=== PATIENT | male | born 1980 | race Caucasian/White ===

== ENCOUNTER 2017-11-16 13:17 | Inpatient (IN) | payer OTHER ==
[2017-11-16 14:45] VITALS: BMI 25.9
--- NOTE | 2017-11-16 17:09 | HP ---
COWS - Scale Resting Pulse: 0= [place] 80 or Below Sweatin= Chills/Flushing Restless Observation: 1= Difficult to Sit Still Pupil Size: 0= Normal to Room Light Bone or Joint Aches: 1= Mild Discomfort Runny Nose/ Eye Tearin= Runny Nose/Eyes GI Upset > 30mins: 2= Nausea/Diarrhea Tremor Observation: 1= Tremor [place], Not Seen Yawning Observation: 1= 1-2x During Session Anxiety or Irritability: 1=Feels Anxious/Irritable Goose Flesh Skin: 3=Piloerection COWS Score: 13 Admission ROS S - HPI Chief Complaint: I've lost everything, I need help, I've tried. Allergies/Adverse Reactions: Allergies Allergy/AdvReac Type Severity Reaction Status Date / Time No Known Allergies Allergy Verified 11/16/17 17:01 History of Present Illness: 37 yo gentleman here for detox from opiates. No overdoses, no seizures, has had black outs. States he drinks but it is not a problem and does not need detox from that. First time ever in detox. States he has bronchitis and was given a Rx for augmentin yesterday that he did not get to fill yet. Exam Limitations: Clinical Condition - Ebola screening Have you traveled outside of the country in the last 21 days: No ([place]) Have you had contact with anyone from an Ebola affected area: No Have you been sick,other than usual withdrawal symptoms: No Do you have a fever: No - Review of Systems Constitutional: Loss of Appetite, Malaise, Night Sweats, Changes in sleep, Weakness EENT: reports: Blurred Vision, Nose Congestion Respiratory: reports: Cough, Productive cough (greenish phlegm) Cardiac: reports: No Symptoms Reported GI: reports: Diarrhea, Nausea, Poor Appetite, Abdominal cramping : reports: Dysuria Musculoskeletal: reports: Back Pain, Joint Pain, Muscle Pain Integumentary: reports: Dryness, Rash (elbow flecture aspect - mild erythema) Neuro: reports: Headache, Tremors Endocrine: reports: No Symptoms Reported Hematology: reports: No Symptoms Reported Psychiatric: reports: Judgement Intact, Mood/Affect Appropiate, Anxious Other Systems: Reviewed and Negative Patient History - Patient Medical History Hx Anemia: No Hx Asthma: No Hx Chronic Obstructive Pulmonary Disease (COPD): No Hx Cancer: No Hx Cardiac Disorders: No Hx Congestive Heart Failure: No Hx Hypertension: No Hx Pacemaker: No Hx Seizures: No Hx Dementia: No Hx Diabetes: No Hx Gastrointestinal Disorders: No Hx Liver Disease: No Hx Genitourinary Disorders: No Hx Sexually Transmitted Disorders: No Hx Renal Disease (ESRD): No Hx Thyroid Disease: No Hx Human Immunodeficiency Virus (HIV): No Hx Hepatitis C: No Hx Depression: Yes (anxiety) Hx Suicide Attempt: No Hx Bipolar Disorder: No Hx Schizophrenia: No - Patient Surgical History Past Surgical History: No - PPD History Previous Implant?: Yes Documented Results: Negative w/o proof Implanted On Prior [facility] Admission?: No PPD to be Administered?: Yes - Reproductive History Patient is a Female of Child Bearing Age (11 -55 yrs old): No - Smoking Cessation Smoking history: Current every day smoker Have you smoked in the past 12 months: Yes Aproximately how many cigarettes per day: 5 Initiated information on smoking cessation: Yes 'Breaking Loose' booklet given: 11/16/17 (give on floor) - Substance & Tx. History Hx Alcohol Use: Yes Substance Use Type: Cocaine, Heroin, Opiates Hx Substance Use Treatment: No - Substances Abused oxycodone Route: Oral Frequency: Daily Amount used: five 30mg pills Age of first use: 31 Date of Last Use: 11/16/17 heroin Route: Inhalation Frequency: 1-3 times last 30 days Amount used: 1 bundle Age of first use: 25 Date of Last Use: 11/06/17 cocaine Route: Inhalation Frequency: 1-2 times per week Amount used: $40 Age of first use: 14 Date of Last Use: 11/02/17 alcohol Route: Oral Frequency: Daily Amount used: three 12 oz cans beer Age of first use: 18 Date of Last Use: 11/16/17 Family Disease History - Family Disease History Family Disease History: [place]: Mother (living), Other: Father (, etoh), Mother Admission Physical Exam S - Vital Signs Vital Signs: Vital Signs - 24 hr 11/16/17 14:44 Temperature 97.4 F L Pulse Rate 72 Respiratory 18 Rate Blood Pressure 149/97 - Physical General Appearance: Yes: Nourished, Appropriately Dressed, Moderate Distress, Tremorous, Anxious HEENTM: Yes: Hearing grossly Normal, Normocephalic, Normal Voice, Pharynx Normal Respiratory: Yes: No Respiratory Distress, Rhonchi Neck: Yes: No masses,lesions,Nodules, Supple Breast: Yes: Breast Exam Deferred Cardiology: Yes: Regular Rhythm, Regular Rate Abdominal: Yes: Soft Genitourinary: Yes: Within Normal Limits Back: Yes: Normal Inspection Musculoskeletal: Yes: full range of Motion, Gait Steady Extremities: Yes: Normal Inspection, Non-Tender Neurological: Yes: Fully Oriented, Alert, Normal Mood/Affect, Normal Response Integumentary: Yes: Normal Color, Warm Lymphatic: Yes: Within Normal Limits - Diagnostic (1) Opioid dependence with withdrawal Current Visit: Yes Status: Chronic (2) Bronchitis Current Visit: Yes Status: Chronic (3) Nicotine dependence Current Visit: Yes Status: Acute Qualifiers: Nicotine product type: cigarettes Substance use status: uncomplicated Qualified Code(s): F17.210 - Nicotine dependence, cigarettes, uncomplicated Cleared for Admission [facility] - Detox or Rehab [facility] Level of Care: Medically Managed Detox Regimen/Protocol: Methadone [facility] Breath Alcohol Content Breath Alcohol Content: 0 Urine Drug Screen - Results Drug Screen Negative: No Urine Drug Screen Results: TCA-Tricyclic Antidepress, OXY-Oxycodone
[2017-11-16] MEDS ORDERED: MAGNESIUM HYDROX 2400MG/30ML ORAL SUSPENSION 30 ML CUP PO PRN (17:12)
[2017-11-16] MEDS ORDERED: MENTHOL/PHENOL 1 EACH UD MM PRN (17:12)
[2017-11-16] MEDS ORDERED: MAGNESIUM CITRATE 300 ML BOTTLE PO PRN (17:12)
[2017-11-16] MEDS ORDERED: MAG HYDROX/AL HYDROX/SIMETH 30 ML UNIT-DOSE CUP PO PRN (17:12)
[2017-11-16] MEDS ORDERED: P-EPHED 60MG/TRIPROLIDI 2.5MG TABLET PO PRN (17:12)
[2017-11-16] MEDS ORDERED: METHADONE HCL 10 MG TABLET (FOR DETOX USE ONLY) PO ONE ×2 (18:15→23:00)
[2017-11-16] MEDS: diazePAM 5 MG TABLET PO PRN (19:32)
[2017-11-16] MEDS ORDERED: MELATONIN 5 MG TABLETS PO PRN (22:00)
[2017-11-16] MEDS: AMOX TR/POT CLAV 500MG/125MG TABLETS (FP) PO SCH (22:58)
[2017-11-16] MEDS: THIAMINE HCL 100 MG TABLET (FP) PO SCH (22:58)
[2017-11-16] MEDS: NICOTINE POLACRILEX 2 MG GUM BUC PRN (23:17)
[2017-11-17] MEDS: diazePAM 5 MG TABLET PO PRN ×5 (01:24→22:43)
[2017-11-17] MEDS: LOPERAMIDE HCL 2 MG CAPSULE PO PRN ×2 (01:24→13:06)
[2017-11-17] MEDS: ACETAMINOPHEN 325 MG TABLET (FP) PO PRN ×3 (06:08→18:43)
[2017-11-17] MEDS: AMOX TR/POT CLAV 500MG/125MG TABLETS (FP) PO SCH ×2 (08:43→17:03)
[2017-11-17] MEDS: NICOTINE POLACRILEX 2 MG GUM BUC PRN ×2 (08:55→23:06)
[2017-11-17] MEDS ORDERED: METHADONE HCL 10 MG TABLET (FOR DETOX USE ONLY) PO ONE (10:00)
[2017-11-17] MEDS: PRENATAL VITAMINS W/ FOLIC ACID TABLET (FP) PO SCH (10:26)
--- NOTE | 2017-11-17 12:54 | CONSULT ---
[facility] Psychiatric Consult - Data Date of interview: 11/17/17 Admission source: Admitted to the unit as a transfer from [facility] for Detox Identifying data: patient is 37 y/o male admitted for the first time to a Detox unit due to heroin abuse, oxydcodone , ETOH and cocaine. 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 Single, employed, homeless, no children Substance Abuse History: history of polysubstance use over 2 decades. Refer to addiction counselor note for more detailed drug history Medical History: Patient is currentky in treatment for acute bronchitis ewa augmentin. No past surgery Psychiatric History: No prior contact with a mental health healthcare network consultant Physical/Sexual Abuse/Trauma History: No history of abuse Additional Comment: Prior arrest for DUI no [place] [facility] time Mental Status Exam - Mental Status Exam Alert and Oriented to: Place, Person Cognitive Function: Good Patient Appearance: Well Groomed Mood: Euthymic Affect: Appropriate Patient Behavior: Appropriate Speech Pattern: Appropriate Voice Loudness: Normal Thought Process: Intact Thought Disorder: Present Hallucinations: Denies Suicidal Ideation: Denies Homicidal Ideation: Denies Insight/Judgement: Poor Sleep: Poorly Appetite: Fair Muscle strength/Tone: Normal Gait/Station: Normal Psychiatric Findings - Problem List ([place] 1, 2,3) (1) Nicotine dependence Current Visit: Yes Status: Acute Qualifiers: Nicotine product type: cigarettes Substance use status: uncomplicated Qualified Code(s): F17.210 - Nicotine dependence, cigarettes, uncomplicated (2) Bronchitis Current Visit: Yes Status: Chronic (3) Opioid dependence with withdrawal Current Visit: Yes Status: Chronic - Initial Treatment Plan Initial Treatment Plan: Psychoeducation. Continue detox treatment. Ambien 10 mg po q hs prn for insomnia
--- NOTE | 2017-11-17 13:04 | PN ---
[facility] COWS - Scale Resting Pulse: 0= [place] 80 or Below Sweatin= Chills/Flushing Restless Observation: 3= Extraneous Movement Pupil Size: 0= Normal to Room Light Bone or Joint Aches: 4=Acute Joint/Muscle Pain Runny Nose/ Eye Tearin= None GI Upset > 30mins: 2= Nausea/Diarrhea Tremor Observation of Outstretched Hands: 2= Slight Tremor Visible Yawning Observation: 1= 1-2x During Session Anxiety or Irritability: 2=Irritable/Anxious Goose Flesh Skin: 0=Smooth Skin COWS Score: 15 BHS Progress Note (SOAP) Subjective: ANXIETY,IRRITABILITY,SWEATS,TREMORS,DIARRHEA,INTERMITTENT SLEEP-REQUESTING AMBIEN. Objective: 11/17/17 13:03 Vital Signs 11/17/17 11/17/17 06:11 10:52 Temperature 97.8 F 97.6 F Pulse Rate 65 66 Respiratory 18 18 Rate Blood Pressure 123/76 129/77 Assessment: 11/17/17 13:03 WITHDRAWAL SX Plan: CONTINUE DETOX IMODIUM PRN TO SEE PSYCH THIS AFTERNOON RE:INSOMNIA
[2017-11-17] MEDS: NICOTINE 14 MG/24 HOURS TOPICAL PATCH TD SCH (13:09)
[2017-11-17] MEDS: IBUPROFEN 400 MG TABLET (FP) PO PRN ×2 (14:59→22:46)
[2017-11-17] MEDS: guaiFENesin/D-METHORPHAN HB 10 ML UNIT-DOSE CUPS PO PRN (18:45)
[2017-11-17] MEDS: THIAMINE HCL 100 MG TABLET (FP) PO SCH (22:43)
[2017-11-17] MEDS: ZOLPIDEM TARTRATE 5 MG TABLET PO PRN (22:44)
[2017-11-18] MEDS: IBUPROFEN 400 MG TABLET (FP) PO PRN ×3 (03:47→22:45)
[2017-11-18] MEDS: diazePAM 5 MG TABLET PO PRN ×4 (03:47→22:40)
[2017-11-18] MEDS: AMOX TR/POT CLAV 500MG/125MG TABLETS (FP) PO SCH ×2 (07:44→17:31)
[2017-11-18] MEDS: ACETAMINOPHEN 325 MG TABLET (FP) PO PRN ×2 (08:35→17:30)
[2017-11-18] MEDS ORDERED: METHADONE HCL 5 MG TABLET (FOR DETOX USE ONLY) PO ONE (10:00)
[2017-11-18] MEDS: NICOTINE 14 MG/24 HOURS TOPICAL PATCH TD SCH (10:24)
[2017-11-18] MEDS: PRENATAL VITAMINS W/ FOLIC ACID TABLET (FP) PO SCH (10:24)
--- NOTE | 2017-11-18 12:26 | PN ---
[facility] COWS - Scale Resting Pulse: 0= [place] 80 or Below Sweatin= Chills/Flushing Restless Observation: 3= Extraneous Movement Pupil Size: 2= Moderately Dilated Bone or Joint Aches: 4=Acute Joint/Muscle Pain Runny Nose/ Eye Tearin= Nasal Congestion GI Upset > 30mins: 0= None Tremor Observation of Outstretched Hands: 0= None Yawning Observation: 0= None Anxiety or Irritability: 2=Irritable/Anxious Goose Flesh Skin: 0=Smooth Skin COWS Score: 13 BHS Progress Note (SOAP) Subjective: ANXIETY,SWEATS/CHILLS, SORETHROAT, FATIGUE Objective: 11/18/17 12:35 Vital Signs 11/18/17 11/18/17 06:18 09:16 Temperature 97.5 F L 96.7 F L Pulse Rate 66 64 Respiratory 18 18 Rate Blood Pressure 113/70 126/69 Assessment: 11/18/17 12:35 WITHDRAWAL SX Plan: CONTINUE DETOX CEPASTAT THROAT LOZENGES PRN
[2017-11-18] MEDS ORDERED: NICOTINE 14 MG/24 HOURS TOPICAL PATCH TD ONE (13:45)
--- NOTE | 2017-11-18 14:19 | EKG ---
Test Reason : Blood Pressure : / mmHG Vent. Rate : 076 BPM Atrial Rate : 076 BPM P-R Int : 164 ms QRS Dur : 086 ms QT Int : 374 ms P-R-T Axes : 060 042 030 degrees QTc Int : 420 ms NORMAL SINUS RHYTHM SEPTAL INFARCT , AGE UNDETERMINED ABNORMAL ECG NO PREVIOUS ECGS AVAILABLE Confirmed by DORIE BALL MD ([id number]) on 11/18/2017 2:19:27 PM Referred By: Confirmed By:DORIE BALL MD
[2017-11-18 14:41] LABS: URINE APPEARANCE TURBID; URINE BILIRUBIN NEGATIVE (<2.0 mg/dL); URINE COLOR AMBER; URINE GLUCOSE (UA) NEGATIVE (NEGATIVE); URINE KETONE NEGATIVE (NEGATIVE); URINE LEUK ESTERASE NEGATIVE (NEGATIVE); URINE NITRITE NEGATIVE (NEGATIVE); URINE PROTEIN NEGATIVE (NEGATIVE); URINE UROBILINOGEN NEGATIVE mg/dL (0.2-1.0)
[2017-11-18] MEDS: guaiFENesin/D-METHORPHAN HB 10 ML UNIT-DOSE CUPS PO PRN ×2 (17:31→22:41)
[2017-11-18] MEDS: THIAMINE HCL 100 MG TABLET (FP) PO SCH (22:38)
[2017-11-18] MEDS: ZOLPIDEM TARTRATE 5 MG TABLET PO PRN (22:38)
[2017-11-18] MEDS: HYDROCORTISONE 1% TOPICAL OINT 30 GM TUBE TP PRN (22:45)
[2017-11-18] MEDS ORDERED: diphenhydrAMINE HCL 25 MG CAPSULE (FP) PO ONE (23:45)
[2017-11-19] MEDS: ACETAMINOPHEN 325 MG TABLET (FP) PO PRN ×4 (03:52→22:21)
[2017-11-19] MEDS: diazePAM 5 MG TABLET PO PRN ×3 (03:52→16:53)
[2017-11-19] MEDS: IBUPROFEN 400 MG TABLET (FP) PO PRN ×3 (05:45→18:01)
[2017-11-19] MEDS: guaiFENesin/D-METHORPHAN HB 10 ML UNIT-DOSE CUPS PO PRN ×3 (05:46→22:22)
[2017-11-19] MEDS: AMOX TR/POT CLAV 500MG/125MG TABLETS (FP) PO SCH ×2 (07:41→16:54)
[2017-11-19] MEDS ORDERED: METHADONE HCL 5 MG TABLET (FOR DETOX USE ONLY) PO ONE (10:00)
[2017-11-19] MEDS: PRENATAL VITAMINS W/ FOLIC ACID TABLET (FP) PO SCH (10:23)
[2017-11-19] MEDS: NICOTINE 14 MG/24 HOURS TOPICAL PATCH TD SCH (10:23)
--- NOTE | 2017-11-19 11:18 | PN ---
[facility] Progress Note (SOAP) Subjective: ALERT O X 3. DECREASED W/S- LESS AGITATIONS. DETOX TAPER PROCEEDING PER PROTOCOL. Objective: 11/19/17 11:15 Vital Signs 11/19/17 11/19/17 11/19/17 06:00 09:19 10:28 Temperature 97.4 F L 97.8 F Pulse Rate 64 81 80 Respiratory 18 18 18 Rate Blood Pressure 102/72 89/65 122/82 Laboratory Tests 11/18/17 11:00 Urine Color Fang Urine Appearance Turbid Urine pH 5.0 Ur Specific [place] 1.020 Urine Protein Negative Urine Glucose (UA) Negative Urine Ketones Negative Urine Blood Negative Urine Nitrite Negative Urine Bilirubin Negative Urine Urobilinogen Negative Ur Leukocyte Esterase Negative OTHER LABS PENDING Assessment: 11/19/17 11:16 WITHDRAWAL SX Plan: CONTINUE DETOX
[2017-11-19] MEDS: hydrOXYzine PAMOATE 50 MG CAPSULE (FP) PO PRN (19:36)
[2017-11-19] MEDS: THIAMINE HCL 100 MG TABLET (FP) PO SCH (22:19)
[2017-11-19] MEDS: ZOLPIDEM TARTRATE 5 MG TABLET PO PRN (22:20)
[2017-11-20] MEDS: IBUPROFEN 400 MG TABLET (FP) PO PRN ×2 (01:37→17:35)
[2017-11-20] MEDS: ACETAMINOPHEN 325 MG TABLET (FP) PO PRN ×3 (05:36→22:34)
[2017-11-20] MEDS: hydrOXYzine PAMOATE 50 MG CAPSULE (FP) PO PRN ×4 (05:37→22:45)
[2017-11-20] MEDS: guaiFENesin/D-METHORPHAN HB 10 ML UNIT-DOSE CUPS PO PRN ×3 (05:39→22:45)
[2017-11-20] MEDS: AMOX TR/POT CLAV 500MG/125MG TABLETS (FP) PO SCH ×2 (07:46→17:34)
[2017-11-20] MEDS ORDERED: METHADONE HCL 10 MG TABLET (FOR DETOX USE ONLY) PO ONE (10:00)
[2017-11-20] MEDS: PRENATAL VITAMINS W/ FOLIC ACID TABLET (FP) PO SCH (10:28)
[2017-11-20] MEDS: NICOTINE 14 MG/24 HOURS TOPICAL PATCH TD SCH (10:29)
--- NOTE | 2017-11-20 13:50 | PN ---
B[facility] Progress Note (SOAP) Subjective: DECREASE ANXIETY,IRRITABILITY, RESTING IN BED AND OOB NEEDED. Objective: 11/20/17 13:50 Vital Signs 11/20/17 11/20/17 11/20/17 06:28 09:17 13:35 Temperature 97.5 F L 96.6 F L 97.5 F L Pulse Rate 79 67 79 Respiratory 18 18 20 Rate Blood Pressure 129/87 122/65 117/70 Laboratory Tests 11/18/17 11:00 Urine Color Fang Urine Appearance Turbid Urine pH 5.0 Ur Specific [place] 1.020 Urine Protein Negative Urine Glucose (UA) Negative Urine Ketones Negative Urine Blood Negative Urine Nitrite Negative Urine Bilirubin Negative Urine Urobilinogen Negative Ur Leukocyte Esterase Negative Assessment: 11/20/17 13:50 DECREASED WITHDRAWAL SX Plan: CONTINUE DETOX
[2017-11-20] MEDS: HYDROCORTISONE 1% TOPICAL OINT 30 GM TUBE TP PRN (21:24)
[2017-11-20] MEDS: THIAMINE HCL 100 MG TABLET (FP) PO SCH (22:30)
[2017-11-20] MEDS: ZOLPIDEM TARTRATE 5 MG TABLET PO PRN (22:31)
[2017-11-21] MEDS ORDERED: METHADONE HCL 5 MG TABLET (FOR DETOX USE ONLY) PO ONE (06:00)
[2017-11-21] MEDS: hydrOXYzine PAMOATE 50 MG CAPSULE (FP) PO PRN ×2 (06:08→11:47)
[2017-11-21] MEDS: ACETAMINOPHEN 325 MG TABLET (FP) PO PRN (06:09)
[2017-11-21 06:33] VITALS: BP 117/70; PULSE 65; TEMP 97.4
[2017-11-21] MEDS: AMOX TR/POT CLAV 500MG/125MG TABLETS (FP) PO SCH (07:32)
[2017-11-21] MEDS: PRENATAL VITAMINS W/ FOLIC ACID TABLET (FP) PO SCH (10:27)
[2017-11-21] MEDS: NICOTINE 14 MG/24 HOURS TOPICAL PATCH TD SCH (10:28)
[2017-11-21] MEDS: IBUPROFEN 400 MG TABLET (FP) PO PRN (10:30)
[2017-11-21] MEDS: guaiFENesin/D-METHORPHAN HB 10 ML UNIT-DOSE CUPS PO PRN (10:32)
--- NOTE | 2017-11-21 11:38 | PN ---
B[facility] Progress Note (SOAP) Subjective: DETOX COMPLETED. ALERT O X 3. [facility] Objective: 11/21/17 11:37 Vital Signs 11/21/17 06:33 Temperature 97.4 F L Pulse Rate 65 Respiratory 18 Rate Blood Pressure 117/70 Laboratory Tests 11/18/17 11:00 Urine Color Fang Urine Appearance Turbid Urine pH 5.0 Ur Specific [place] 1.020 Urine Protein Negative Urine Glucose (UA) Negative Urine Ketones Negative Urine Blood Negative Urine Nitrite Negative Urine Bilirubin Negative Urine Urobilinogen Negative Ur Leukocyte Esterase Negative Assessment: 11/21/17 11:37 MEDICALLY STABLE Plan: D/C PT TO REHAB TODAY
--- NOTE | 2017-11-21 11:39 | DS ---
[facility] Detox Discharge Summary Admission Date: 11/16/17 Discharge Date: 11/21/17 - History Present History: Opioid Dependence Additional Comments: DETOX COMPLETED. Pertinent Past History: PLEASE SEE DX BELOW - Physical Exam Results Vital Signs: Vital Signs Temperature 97.4 F L 11/21/17 06:33 Pulse Rate 65 11/21/17 06:33 Respiratory Rate 18 11/21/17 06:33 Blood Pressure 117/70 11/21/17 06:33 O2 Sat by Pulse Oximetry (%) Pertinent Admission Physical Exam Findings: WITHDRAWAL SX Laboratory Tests 11/18/17 11:00 Urine Color Fang Urine Appearance Turbid Urine pH 5.0 Ur Specific [place] 1.020 Urine Protein Negative Urine Glucose (UA) Negative Urine Ketones Negative Urine Blood Negative Urine Nitrite Negative Urine Bilirubin Negative Urine Urobilinogen Negative Ur Leukocyte Esterase Negative - Treatment Hospital Course: Detox Protocol Followed, Detoxed Safely, Responded well, Discharged Condition Good, Rehab Referral Accepted Patient has Accepted a Rehab Referral to: [address] - Medication Discharge Medications: Ambulatory Orders NK [No Known Home Medication] 11/16/17 - Diagnosis (1) Nicotine dependence Current Visit: Yes Status: Acute Qualifiers: Nicotine product type: cigarettes Substance use status: in withdrawal Qualified Code(s): F17.213 - Nicotine dependence, cigarettes, with withdrawal (2) Opioid dependence with withdrawal Current Visit: Yes Status: Acute (3) Insomnia Current Visit: Yes Status: Acute Qualifiers: Insomnia type: unspecified Qualified Code(s): G47.00 - Insomnia, unspecified - AMA Did Patient Leave Against Medical Advice: No
== END 2017-11-21 14:40 | disposition other institution (70) | DRG 773 ==
LOC: YASAS 13:17 → Y3N 18:10
PROC: HZ2ZZZZ Detoxification Services for Substance Abuse Treatment (ICD-10-PCS; principal; 2017-11-16)
DX: F11.23 Opioid dependence with withdrawal (principal); F17.213 Nicotine dependence, cigarettes, with withdrawal; F41.8 Other specified anxiety disorders; G47.00 Insomnia, unspecified; J40 Bronchitis, not specified as acute or chronic
CPT/HCPCS: 81003; 93005; 93010

== ENCOUNTER 2017-11-21 14:53 | Inpatient (IN) | payer OTHER ==
[2017-11-21] MEDS ORDERED: LOPERAMIDE HCL 2 MG CAPSULE PO PRN (15:00)
[2017-11-21] MEDS ORDERED: MAGNESIUM CITRATE 300 ML BOTTLE PO PRN (15:00)
[2017-11-21] MEDS ORDERED: P-EPHED 60MG/TRIPROLIDI 2.5MG TABLET PO PRN (15:00)
[2017-11-21] MEDS ORDERED: MAG HYDROX/AL HYDROX/SIMETH 30 ML UNIT-DOSE CUP PO PRN (15:00)
[2017-11-21] MEDS ORDERED: MAGNESIUM HYDROX 2400MG/30ML ORAL SUSPENSION 30 ML CUP PO PRN (15:00)
--- NOTE | 2017-11-21 15:03 | HP ---
[facility] Re[facility] Assess/Revision - Admission History Admitted to Rehab from: [facility] Date of Admission to Rehab: 11/21/17 - Findings Detox History & Physical reviewed: Yes Concur with findings: Yes Comments/Additional Findings: PT COMPLETED DETOX TODAY AND REFEERED TO REHAB Inpatient Rehab Admission - Initial Determination Are CD services needed?: Yes Free of communicable disease: Yes Not in need of hospitalization: Yes - Rehab Admission Criteria Patient is meeting Inpatient Rehab admission criteria:: Yes
[2017-11-21] MEDS ORDERED: TUBERCULIN PPD 5 TU/0.1ML VIAL ID ONE (15:25)
[2017-11-21] MEDS: THIAMINE HCL 100 MG TABLET (FP) PO SCH (21:09)
[2017-11-21] MEDS: hydrOXYzine PAMOATE 50 MG CAPSULE (FP) PO PRN (21:09)
[2017-11-21] MEDS: MELATONIN 5 MG TABLETS PO PRN (21:09)
[2017-11-21] MEDS: guaiFENesin/D-METHORPHAN HB 10 ML UNIT-DOSE CUPS PO PRN (21:11)
[2017-11-22] MEDS: guaiFENesin/D-METHORPHAN HB 10 ML UNIT-DOSE CUPS PO PRN ×2 (06:18→17:07)
[2017-11-22] MEDS: hydrOXYzine PAMOATE 50 MG CAPSULE (FP) PO PRN ×4 (06:19→18:37)
[2017-11-22] MEDS: IBUPROFEN 400 MG TABLET (FP) PO PRN ×2 (06:19→18:37)
[2017-11-22] MEDS: PRENATAL VITAMINS W/ FOLIC ACID TABLET (FP) PO SCH (09:53)
[2017-11-22] MEDS: ACETAMINOPHEN 325 MG TABLET (FP) PO PRN ×2 (09:55→13:55)
[2017-11-22] MEDS: NICOTINE 21 MG/24 HOURS TOPICAL PATCH TD SCH (09:56)
[2017-11-22 10:03] LABS: BASO % 0.6 % (0-2.0); EOS % 4.4 % (0-4.5); HEMATOCRIT 40.9 % (35.4-49); HEMOGLOBIN 14.1 GM/dL (11.7-16.9); LYMPH % 34.3 % (8-40); MCH 31.6 pg (25.7-33.7); MCHC 34.5 g/dl (32.0-35.9); MEAN CELL VOLUME 91.6 fl (80-96); MEAN PLT VOLUME 9.2 fl (7.5-11.1); MONO % 10.6 % (3.8-10.2); NEUT % 50.1 % (42.8-82.8); PLATELET COUNT 271 K/MM3 (134-434); RBC 4.46 M/mm3 (4.00-5.60); RDW 12.4 % (11.9-15.9); WHITE BLOOD COUNT 6.6 K/mm3 (4.0-10.0)
[2017-11-22 10:24] LABS: CHLORIDE 95 mmol/L (98-107); POTASSIUM 4.7 mmol/L (3.5-5.1); SODIUM 137 mmol/L (136-145)
[2017-11-22 10:31] LABS: ALK PHOS 68 U/L (45-117); ANION GAP 6 MMOL/L (8-16); BILIRUBIN,TOTAL 0.6 mg/dL (0.2-1.0); BLOOD UREA NITROGEN 11 mg/dL (7-18); CALCIUM 9.3 mg/dL (8.5-10.1); CO2 36 mmol/L (21-32); CREATININE 0.9 mg/dL (0.7-1.3); GLUCOSE,RANDOM 95 mg/dL (74-106); SGOT/AST 50 U/L (15-37); SGPT/ALT 77 U/L (12-78); TOT PROT 7.7 g/dl (6.4-8.2)
[2017-11-22] MEDS ORDERED: AMOX TR/POT CLAV 875MG/125MG TABLETS (FP) PO ONE (10:43)
--- NOTE | 2017-11-22 15:29 | PN ---
[facility] Progress Note Note: Per nurse, Mary Kay, patient completed detox yesterday and now on rehab. Pt c/o body aches, withdrawal symptoms- will give flexeril and suboxone 4mg and eval ongoing.
[2017-11-22] MEDS: BUPRENORPHINE/NALOXONE 2 MG/0.5 MG FILM PACKET SL SCH (15:37)
[2017-11-22] MEDS: CYCLOBENZAPRINE HCL 10 MG TABLET (FP) PO PRN ×2 (15:37→21:39)
[2017-11-22] MEDS: AMOX TR/POT CLAV 875MG/125MG TABLETS (FP) PO SCH (17:05)
[2017-11-22] MEDS: NICOTINE POLACRILEX 4 MG GUM BUC PRN (17:43)
--- NOTE | 2017-11-22 18:16 | HP ---
Psychiatrist Admission - Data Date of interview: 11/24/17 Admission source: [facility] Identifying data: Patient is a 37 year old single male, employed, without children, and is currently homeless. This is patient's first admission to Rehab at [facility]. admitted to for alcohol, opiate and cocaine dependence. Medical History: Denies. Psychiatric History: Patient denies h/o psychiatric hospitalization, outpatient care, and suicide attempt. Patient reports poor sleep. States he has been prescribed ambien 10mg in the past. Physical/Sexual Abuse/Trauma History: denies. Vital Signs: Vital Signs - 24 hr 11/22/17 11/22/17 03:30 06:36 Temperature 98.0 F Pulse Rate 73 Respiratory 18 18 Rate Blood Pressure 112/63 Allergies/Adverse Reactions: Allergies Allergy/AdvReac Type Severity Reaction Status Date / Time No Known Allergies Allergy Verified 11/16/17 17:01 Date of last physical exam: 11/16/17 Concur with the findings of this exam: Yes - Substance Abuse/Tx History Hx Alcohol Use: Yes (Varies per week) Hx Substance Use: Yes (Heroin- 1-2 bundles daily.) Substance Use Type: Heroin Hx Substance Use Treatment: Yes (This is patient's first rehab.) Mental Status Exam - Mental Status Exam Alert and Oriented to: Time, Place, Person Cognitive Function: Good Patient Appearance: Well Groomed Mood: Euthymic Affect: Mood Congruent Patient Behavior: Fatigued (Reports poor sleep. ), Appropriate, Cooperative Speech Pattern: Appropriate Voice Loudness: Normal Thought Process: Intact, Goal Oriented Thought Disorder: Not Present Hallucinations: Denies Suicidal Ideation: Denies Homicidal Ideation: Denies Insight/Judgement: Poor Sleep: Poorly Appetite: Fair Muscle strength/Tone: Normal Gait/Station: Normal Psychiatric Findings - Problem List ([place] 1, 2,3) (1) Insomnia Current Visit: Yes Status: Acute Qualifiers: Insomnia type: unspecified Qualified Code(s): G47.00 - Insomnia, unspecified (2) Nicotine dependence Current Visit: Yes Status: Chronic Qualifiers: Nicotine product type: cigarettes Substance use status: in withdrawal Qualified Code(s): F17.213 - Nicotine dependence, cigarettes, with withdrawal (3) Opioid dependence Current Visit: Yes Status: Acute - Initial Treatment Plan Initial Treatment Plan: Psychoeducation provided. Detoxification in progress. Belsomra 10mg qhs ordered for insomnia. Benefits and side effects discussed. Verbal consent given. Observation.
[2017-11-22] MEDS: MELATONIN 5 MG TABLETS PO PRN (21:39)
[2017-11-22] MEDS: THIAMINE HCL 100 MG TABLET (FP) PO SCH (21:39)
[2017-11-22] MEDS: SUVOREXANT 10 MG TABLET PO PRN (21:39)
[2017-11-23] MEDS: ACETAMINOPHEN 325 MG TABLET (FP) PO PRN ×2 (06:52→21:19)
[2017-11-23] MEDS: AMOX TR/POT CLAV 875MG/125MG TABLETS (FP) PO SCH ×2 (07:19→16:46)
[2017-11-23] MEDS: NICOTINE 21 MG/24 HOURS TOPICAL PATCH TD SCH (09:46)
[2017-11-23] MEDS: BUPRENORPHINE/NALOXONE 2 MG/0.5 MG FILM PACKET SL SCH (09:46)
[2017-11-23] MEDS: PRENATAL VITAMINS W/ FOLIC ACID TABLET (FP) PO SCH (09:46)
[2017-11-23] MEDS: CYCLOBENZAPRINE HCL 10 MG TABLET (FP) PO PRN ×2 (09:49→21:17)
[2017-11-23] MEDS: IBUPROFEN 400 MG TABLET (FP) PO PRN ×2 (09:49→16:45)
[2017-11-23] MEDS: hydrOXYzine PAMOATE 50 MG CAPSULE (FP) PO PRN ×2 (09:49→21:16)
[2017-11-23] MEDS: NICOTINE POLACRILEX 4 MG GUM BUC PRN ×2 (11:17→20:01)
--- NOTE | 2017-11-23 11:22 | PN ---
S Progress Note Note: Vital Signs Temperature 98.0 F 11/23/17 06:56 Pulse Rate 75 11/23/17 06:56 Respiratory Rate 18 11/23/17 06:56 Blood Pressure 97/58 11/23/17 06:56 O2 Sat by Pulse Oximetry (%) reports hx eczema TP hydrocortisone Oint PRN continue to monitor
[2017-11-23] MEDS: THIAMINE HCL 100 MG TABLET (FP) PO SCH (21:14)
[2017-11-23] MEDS: SUVOREXANT 10 MG TABLET PO PRN (21:17)
[2017-11-23] MEDS: MELATONIN 5 MG TABLETS PO PRN (21:17)
[2017-11-24] MEDS: IBUPROFEN 400 MG TABLET (FP) PO PRN ×3 (03:11→17:12)
[2017-11-24] MEDS: AMOX TR/POT CLAV 875MG/125MG TABLETS (FP) PO SCH ×2 (07:31→17:08)
[2017-11-24] MEDS: NICOTINE 21 MG/24 HOURS TOPICAL PATCH TD SCH (09:35)
[2017-11-24] MEDS: BUPRENORPHINE/NALOXONE 2 MG/0.5 MG FILM PACKET SL SCH (09:36)
[2017-11-24] MEDS: PRENATAL VITAMINS W/ FOLIC ACID TABLET (FP) PO SCH (09:36)
[2017-11-24] MEDS: CYCLOBENZAPRINE HCL 10 MG TABLET (FP) PO PRN ×2 (11:51→21:20)
[2017-11-24] MEDS: hydrOXYzine PAMOATE 50 MG CAPSULE (FP) PO PRN ×2 (11:51→21:20)
[2017-11-24] MEDS: NICOTINE POLACRILEX 4 MG GUM BUC PRN ×2 (13:07→22:59)
[2017-11-24] MEDS: ACETAMINOPHEN 325 MG TABLET (FP) PO PRN ×2 (14:42→21:22)
[2017-11-24] MEDS: guaiFENesin/D-METHORPHAN HB 10 ML UNIT-DOSE CUPS PO PRN (14:43)
[2017-11-24] MEDS: THIAMINE HCL 100 MG TABLET (FP) PO SCH (21:20)
[2017-11-24] MEDS: MELATONIN 5 MG TABLETS PO PRN (21:20)
[2017-11-24] MEDS: SUVOREXANT 10 MG TABLET PO PRN (21:21)
[2017-11-25] MEDS: hydrOXYzine PAMOATE 50 MG CAPSULE (FP) PO PRN ×4 (03:19→22:44)
[2017-11-25] MEDS: CYCLOBENZAPRINE HCL 10 MG TABLET (FP) PO PRN ×3 (06:09→21:16)
[2017-11-25] MEDS: AMOX TR/POT CLAV 875MG/125MG TABLETS (FP) PO SCH (07:10)
[2017-11-25] MEDS: NICOTINE 21 MG/24 HOURS TOPICAL PATCH TD SCH (09:55)
[2017-11-25] MEDS: PRENATAL VITAMINS W/ FOLIC ACID TABLET (FP) PO SCH (09:55)
[2017-11-25] MEDS: BUPRENORPHINE/NALOXONE 2 MG/0.5 MG FILM PACKET SL SCH (09:55)
[2017-11-25] MEDS: IBUPROFEN 400 MG TABLET (FP) PO PRN ×3 (10:00→23:41)
--- NOTE | 2017-11-25 13:18 | PN ---
[facility] Progress Note Note: Vital Signs Temperature 97.9 F 11/25/17 07:12 Pulse Rate 61 11/25/17 07:12 Respiratory Rate 18 11/25/17 07:12 Blood Pressure 114/67 11/25/17 07:12 O2 Sat by Pulse Oximetry (%) Patient currently on suboxone 4 mg qd for opioid withdrawal sx. Patient with hx of opioid overdose, reports increase opiod craving and anxiety. Patient AOx3 no distress, anxious no adventitious breath sounds full ROM Plan: increase suboxone from 4mg QD to 4mg BID starting today Patient to follow up with counselor to link with outpatient program increase fluids continue to monitor
[2017-11-25] MEDS: THIAMINE HCL 100 MG TABLET (FP) PO SCH (21:16)
[2017-11-25] MEDS ORDERED: BUPRENORPHINE/NALOXONE 2 MG/0.5 MG FILM PACKET SL ONE (22:00)
[2017-11-25] MEDS: MELATONIN 5 MG TABLETS PO PRN (22:44)
[2017-11-25] MEDS: NICOTINE POLACRILEX 4 MG GUM BUC PRN (23:42)
[2017-11-26] MEDS: hydrOXYzine PAMOATE 50 MG CAPSULE (FP) PO PRN ×4 (03:59→21:20)
[2017-11-26] MEDS: CYCLOBENZAPRINE HCL 10 MG TABLET (FP) PO PRN ×2 (06:16→16:31)
[2017-11-26] MEDS: BUPRENORPHINE/NALOXONE 2 MG/0.5 MG FILM PACKET SL SCH ×2 (10:05→21:20)
[2017-11-26] MEDS: PRENATAL VITAMINS W/ FOLIC ACID TABLET (FP) PO SCH (10:05)
[2017-11-26] MEDS: NICOTINE 21 MG/24 HOURS TOPICAL PATCH TD SCH (10:05)
[2017-11-26] MEDS: IBUPROFEN 400 MG TABLET (FP) PO PRN (14:09)
[2017-11-26] MEDS: HYDROCORTISONE 1% TOPICAL OINT 30 GM TUBE TP PRN (20:38)
[2017-11-26] MEDS: THIAMINE HCL 100 MG TABLET (FP) PO SCH (21:20)
[2017-11-27] MEDS: CYCLOBENZAPRINE HCL 10 MG TABLET (FP) PO PRN ×3 (00:39→17:52)
[2017-11-27] MEDS: MELATONIN 5 MG TABLETS PO PRN ×2 (00:39→23:42)
[2017-11-27] MEDS: SUVOREXANT 10 MG TABLET PO PRN ×2 (00:40→23:42)
[2017-11-27] MEDS: NICOTINE POLACRILEX 4 MG GUM BUC PRN ×3 (01:31→17:53)
[2017-11-27] MEDS: IBUPROFEN 400 MG TABLET (FP) PO PRN ×2 (06:26→13:36)
[2017-11-27] MEDS: hydrOXYzine PAMOATE 50 MG CAPSULE (FP) PO PRN ×4 (06:26→21:55)
[2017-11-27] MEDS: PRENATAL VITAMINS W/ FOLIC ACID TABLET (FP) PO SCH (09:49)
[2017-11-27] MEDS: BUPRENORPHINE/NALOXONE 2 MG/0.5 MG FILM PACKET SL SCH ×2 (09:49→21:17)
[2017-11-27] MEDS: NICOTINE 21 MG/24 HOURS TOPICAL PATCH TD SCH (09:51)
[2017-11-27] MEDS: PANTOPRAZOLE 20 MG TABLET (FP) PO SCH (13:35)
[2017-11-27] MEDS: THIAMINE HCL 100 MG TABLET (FP) PO SCH (21:17)
[2017-11-28] MEDS: IBUPROFEN 400 MG TABLET (FP) PO PRN ×3 (00:52→13:30)
[2017-11-28] MEDS: CYCLOBENZAPRINE HCL 10 MG TABLET (FP) PO PRN ×3 (00:52→17:57)
[2017-11-28] MEDS: hydrOXYzine PAMOATE 50 MG CAPSULE (FP) PO PRN ×4 (07:00→22:08)
[2017-11-28] MEDS: BUPRENORPHINE/NALOXONE 2 MG/0.5 MG FILM PACKET SL SCH ×2 (09:52→21:14)
[2017-11-28] MEDS: PANTOPRAZOLE 20 MG TABLET (FP) PO SCH (09:52)
[2017-11-28] MEDS: NICOTINE 21 MG/24 HOURS TOPICAL PATCH TD SCH (09:52)
[2017-11-28] MEDS: PRENATAL VITAMINS W/ FOLIC ACID TABLET (FP) PO SCH (09:52)
[2017-11-28] MEDS ORDERED: NICOTINE 21 MG/24 HOURS TOPICAL PATCH TD ONE (11:06)
[2017-11-28] MEDS: NICOTINE POLACRILEX 4 MG GUM BUC PRN ×2 (11:07→18:01)
[2017-11-28] MEDS: THIAMINE HCL 100 MG TABLET (FP) PO SCH (21:14)
[2017-11-28] MEDS: SUVOREXANT 10 MG TABLET PO PRN (22:07)
[2017-11-28] MEDS: MELATONIN 5 MG TABLETS PO PRN (23:31)
[2017-11-29] MEDS: IBUPROFEN 400 MG TABLET (FP) PO PRN (06:33)
[2017-11-29] MEDS: hydrOXYzine PAMOATE 50 MG CAPSULE (FP) PO PRN ×3 (09:56→21:13)
[2017-11-29] MEDS: BUPRENORPHINE/NALOXONE 2 MG/0.5 MG FILM PACKET SL SCH (09:56)
[2017-11-29] MEDS: PANTOPRAZOLE 20 MG TABLET (FP) PO SCH (09:56)
[2017-11-29] MEDS: CYCLOBENZAPRINE HCL 10 MG TABLET (FP) PO PRN ×2 (09:56→21:13)
[2017-11-29] MEDS: PRENATAL VITAMINS W/ FOLIC ACID TABLET (FP) PO SCH (09:56)
[2017-11-29] MEDS: NICOTINE 21 MG/24 HOURS TOPICAL PATCH TD SCH (09:57)
[2017-11-29] MEDS: HYDROCORTISONE 1% TOPICAL OINT 30 GM TUBE TP PRN (10:13)
[2017-11-29] MEDS: NICOTINE POLACRILEX 4 MG GUM BUC PRN ×2 (12:57→21:13)
[2017-11-29] MEDS ORDERED: COLLOIDAL OATMEAL 1 BAR EACH TP PRN (16:33)
[2017-11-29] MEDS ORDERED: BUPRENORPHINE/NALOXONE 8 MG/2 MG FILM PACKET SL SCH (18:00)
[2017-11-29] MEDS: THIAMINE HCL 100 MG TABLET (FP) PO SCH (21:11)
[2017-11-29] MEDS: SUVOREXANT 10 MG TABLET PO PRN (21:13)
[2017-11-29] MEDS: MELATONIN 5 MG TABLETS PO PRN (21:13)
[2017-11-30] MEDS: CYCLOBENZAPRINE HCL 10 MG TABLET (FP) PO PRN ×4 (06:23→22:17)
[2017-11-30] MEDS: hydrOXYzine PAMOATE 50 MG CAPSULE (FP) PO PRN ×3 (06:23→18:57)
[2017-11-30] MEDS: IBUPROFEN 400 MG TABLET (FP) PO PRN ×2 (06:23→18:57)
[2017-11-30] MEDS: HYDROCORTISONE 1% TOPICAL OINT 30 GM TUBE TP PRN (07:18)
[2017-11-30] MEDS: PRENATAL VITAMINS W/ FOLIC ACID TABLET (FP) PO SCH (10:10)
[2017-11-30] MEDS: BUPRENORPHINE/NALOXONE 8 MG/2 MG FILM PACKET SL SCH ×2 (10:10→21:13)
[2017-11-30] MEDS: NICOTINE 21 MG/24 HOURS TOPICAL PATCH TD SCH (10:10)
[2017-11-30] MEDS: PANTOPRAZOLE 20 MG TABLET (FP) PO SCH (10:10)
[2017-11-30] MEDS: NICOTINE POLACRILEX 4 MG GUM BUC PRN ×2 (10:11→14:57)
[2017-11-30] MEDS: THIAMINE HCL 100 MG TABLET (FP) PO SCH (21:13)
[2017-11-30] MEDS: SUVOREXANT 10 MG TABLET PO PRN (22:17)
[2017-11-30] MEDS: MELATONIN 5 MG TABLETS PO PRN (22:17)
[2017-12-01] MEDS: IBUPROFEN 400 MG TABLET (FP) PO PRN ×2 (04:03→21:17)
[2017-12-01] MEDS: hydrOXYzine PAMOATE 50 MG CAPSULE (FP) PO PRN ×3 (04:04→14:44)
[2017-12-01] MEDS: NICOTINE POLACRILEX 4 MG GUM BUC PRN ×4 (06:13→23:28)
[2017-12-01] MEDS: CYCLOBENZAPRINE HCL 10 MG TABLET (FP) PO PRN ×3 (06:13→23:27)
[2017-12-01] MEDS: NICOTINE 21 MG/24 HOURS TOPICAL PATCH TD SCH (09:52)
[2017-12-01] MEDS: PRENATAL VITAMINS W/ FOLIC ACID TABLET (FP) PO SCH (09:52)
[2017-12-01] MEDS: PANTOPRAZOLE 20 MG TABLET (FP) PO SCH (09:52)
[2017-12-01] MEDS: BUPRENORPHINE/NALOXONE 8 MG/2 MG FILM PACKET SL SCH ×2 (09:52→21:16)
[2017-12-01] MEDS: MENTHOL/PHENOL 1 EACH UD MM PRN (17:28)
[2017-12-01] MEDS: THIAMINE HCL 100 MG TABLET (FP) PO SCH (21:16)
[2017-12-01] MEDS: SUVOREXANT 10 MG TABLET PO PRN (22:58)
[2017-12-01] MEDS: MELATONIN 5 MG TABLETS PO PRN (22:58)
[2017-12-02] MEDS: IBUPROFEN 400 MG TABLET (FP) PO PRN ×3 (06:15→21:14)
[2017-12-02] MEDS: CYCLOBENZAPRINE HCL 10 MG TABLET (FP) PO PRN ×3 (06:15→21:14)
[2017-12-02] MEDS: hydrOXYzine PAMOATE 50 MG CAPSULE (FP) PO PRN ×4 (06:15→21:15)
[2017-12-02] MEDS: PANTOPRAZOLE 20 MG TABLET (FP) PO SCH (10:10)
[2017-12-02] MEDS: PRENATAL VITAMINS W/ FOLIC ACID TABLET (FP) PO SCH (10:10)
[2017-12-02] MEDS: NICOTINE 21 MG/24 HOURS TOPICAL PATCH TD SCH (10:10)
[2017-12-02] MEDS: BUPRENORPHINE/NALOXONE 8 MG/2 MG FILM PACKET SL SCH ×2 (10:10→21:15)
[2017-12-02] MEDS: NICOTINE POLACRILEX 4 MG GUM BUC PRN ×2 (11:09→21:15)
[2017-12-02] MEDS: SUVOREXANT 10 MG TABLET PO PRN (21:14)
[2017-12-02] MEDS: THIAMINE HCL 100 MG TABLET (FP) PO SCH (21:15)
[2017-12-03] MEDS: IBUPROFEN 400 MG TABLET (FP) PO PRN ×2 (06:08→14:23)
[2017-12-03] MEDS ORDERED: PT OWN MED DRAWER 7, Y5N ONE (06:08)
[2017-12-03] MEDS: CYCLOBENZAPRINE HCL 10 MG TABLET (FP) PO PRN ×3 (06:09→21:08)
[2017-12-03] MEDS: hydrOXYzine PAMOATE 50 MG CAPSULE (FP) PO PRN ×3 (06:09→18:43)
[2017-12-03] MEDS: PANTOPRAZOLE 20 MG TABLET (FP) PO SCH (09:54)
[2017-12-03] MEDS: NICOTINE 21 MG/24 HOURS TOPICAL PATCH TD SCH (09:54)
[2017-12-03] MEDS: PRENATAL VITAMINS W/ FOLIC ACID TABLET (FP) PO SCH (09:54)
[2017-12-03] MEDS: BUPRENORPHINE/NALOXONE 8 MG/2 MG FILM PACKET SL SCH ×2 (09:54→21:08)
[2017-12-03] MEDS: NICOTINE POLACRILEX 4 MG GUM BUC PRN ×2 (10:08→21:10)
[2017-12-03] MEDS: MENTHOL/PHENOL 1 EACH UD MM PRN ×2 (10:08→18:44)
--- NOTE | 2017-12-03 18:00 | PN ---
[facility] Progress Note Note: Psychiatric nurse practitioner scale reclamation tender note: Call received requesting Belsomra renewal for patient. Belsomra 10mg qhs prn renewed for 7 days.
[2017-12-03] MEDS: THIAMINE HCL 100 MG TABLET (FP) PO SCH (21:08)
[2017-12-03] MEDS: MELATONIN 5 MG TABLETS PO PRN (21:08)
[2017-12-03] MEDS: SUVOREXANT 10 MG TABLET PO PRN (21:10)
[2017-12-04] MEDS: hydrOXYzine PAMOATE 50 MG CAPSULE (FP) PO PRN ×4 (01:37→19:01)
[2017-12-04] MEDS: IBUPROFEN 400 MG TABLET (FP) PO PRN ×3 (06:10→19:01)
[2017-12-04] MEDS: CYCLOBENZAPRINE HCL 10 MG TABLET (FP) PO PRN ×3 (06:11→21:14)
[2017-12-04] MEDS: NICOTINE POLACRILEX 4 MG GUM BUC PRN ×2 (06:12→12:44)
[2017-12-04 06:57] VITALS: TEMP 97.8
[2017-12-04] MEDS: NICOTINE 21 MG/24 HOURS TOPICAL PATCH TD SCH (09:49)
[2017-12-04] MEDS: PRENATAL VITAMINS W/ FOLIC ACID TABLET (FP) PO SCH (09:49)
[2017-12-04] MEDS: PANTOPRAZOLE 20 MG TABLET (FP) PO SCH (09:49)
[2017-12-04] MEDS: BUPRENORPHINE/NALOXONE 8 MG/2 MG FILM PACKET SL SCH ×2 (09:50→21:14)
--- NOTE | 2017-12-04 10:47 | PN ---
Psychiatric Progress Note Vital Signs: Vital Signs Period Temp Pulse Resp BP Sys/Collins Pulse Ox Last 24 Hr 97.8 F 72 18-18 111/56 Date of Session: 12/04/17 Chief Complaint:: Discharge Note HPI: Patient addressing Oipoid Dependence comorbid with Nicotine Dependence and Substance-Induced Sleep Disorder Current Medications: Active Medications Generic Name Dose Route Start Last Admin Trade Name Freq PRN Reason Stop Dose Admin Al Hydroxide/Mg Hydroxide 30 ml 11/21/17 15:00 11/27/17 08:42 Mylanta Oral Suspension - PO 30 ml Q6H PRN Administration DYSPEPSIA Buprenorphine/Naloxone 1 each 11/30/17 10:00 12/04/17 09:50 Suboxone 8mg/2mg Sl Film - SL 1 each BID RAMOS Administration Colloidal Oatmeal 1 applic 11/29/17 16:33 Aveeno Soap - TP DAILY PRN HYGEINE Cyclobenzaprine HCl 10 mg 11/22/17 15:27 12/04/17 06:11 Flexeril - PO 10 mg TID PRN Administration MUSCLE SPASMS Eucalyptus/Menthol/Phenol/Sorbitol 1 each 11/21/17 15:00 12/03/17 18:44 Cepastat Lozenge - MM 1 each Q4H PRN Administration SORE THROAT Guaifenesin 10 ml 11/21/17 15:00 11/24/17 14:43 Robitussin Dm - PO 10 ml Q6H PRN Administration COUGH Hydrocortisone 1 applic 11/23/17 11:49 11/30/17 07:18 Hytone 1% Ointment - TP 1 applic DAILY PRN Administration eczema Hydroxyzine Pamoate 50 mg 11/21/17 15:00 12/04/17 06:10 Vistaril - PO 50 mg Q4H PRN Administration AGITATION Ibuprofen 400 mg 11/21/17 15:00 12/04/17 06:10 Motrin - PO 400 mg Q6H PRN Administration Pain Level 4-6 Loperamide HCl 4 mg 11/21/17 15:00 11/22/17 09:55 Imodium - PO 4 mg Q6H PRN Administration DIARRHEA Magnesium Citrate 300 ml 11/21/17 15:00 Citroma - PO Q48H PRN CONSTIPATION Magnesium Hydroxide 30 ml 11/21/17 15:00 Milk Of Magnesia - PO DAILY PRN CONSTIPATION Melatonin 5 mg 11/21/17 22:00 12/03/17 21:08 Melatonin PO 5 mg HS PRN Administration INSOMNIA Nicotine 21 mg 11/22/17 10:00 12/04/17 09:49 Nicoderm Patch - TD 21 mg DAILY RAMOS Administration Nicotine Polacrilex 4 mg 11/21/17 15:00 12/04/17 06:12 Nicorette Gum - BUC 4 mg Q2H PRN Administration NICOTINE REPLACEMENT RX Pantoprazole Sodium 20 mg 11/27/17 13:30 12/04/17 09:49 Protonix - PO 20 mg DAILY RAMOS Administration Multivit/Folic Acid/Iron 1 tab 11/22/17 10:00 12/04/17 09:49 Vitamins ([facility]) - PO 1 tab DAILY RAMOS Administration Pseudoephedrine/Triprolidine 1 combo 11/21/17 15:00 Actifed - PO TID PRN NASAL CONGESTION Suvorexant 10 mg 12/03/17 17:58 12/03/17 21:10 Belsomra PO 12/06/17 17:57 10 mg HS PRN Administration INSOMNIA Thiamine HCl 100 mg 11/21/17 22:00 12/03/17 21:08 Vitamin B1 - PO 100 mg HS RAMOS Administration Current Side Effect: No Lab tests ordered: Yes Lab tests reviewed: Yes Provider note:: Patient will complete this program on 12/05/17. He has met his treatment goals and will continue to address his issues in snf residential treatment at [facility] at [address] [place] [address]. Told sheet writer that from his participation in this program, he has learned the importance of surrounding himself with a sober support network in order to maitain abstinence. He is stable for discharge on 12/05/17 Total face to face time:: 35 Mental Status Exam - Mental Status Exam Alert and Oriented to: Time, Place, Person Cognitive Function: Fair Patient Appearance: Well Groomed Mood: Hopeful, Euthymic Affect: Appropriate Patient Behavior: Cooperative Speech Pattern: Clear Voice Loudness: Normal Thought Process: Intact, Goal Oriented Thought Disorder: Not Present Hallucinations: Denies Suicidal Ideation: Denies Homicidal Ideation: Denies Insight/Judgement: Fair Sleep: Fair Appetite: Good Muscle strength/Tone: Normal Gait/Station: Normal Psychiatric Treatment Plan - Problem List (1) Opioid dependence Current Visit: Yes (2) Nicotine dependence Current Visit: Yes Qualifiers: Nicotine product type: cigarettes Substance use status: in withdrawal Qualified Code(s): F17.213 - Nicotine dependence, cigarettes, with withdrawal (3) Substance-induced sleep disorder Current Visit: Yes Initial treatment plan: Patient will be discharged tomorrow and referred to [facility] for snf residential treatment
--- NOTE | 2017-12-04 13:29 | PN ---
[facility] Progress Note Note: Vital Signs Temperature 97.8 F 12/04/17 06:56 Pulse Rate 72 12/04/17 06:56 Respiratory Rate 18 12/04/17 06:56 Blood Pressure 111/56 12/04/17 06:56 O2 Sat by Pulse Oximetry (%) Patient medically stable. Patient will complete this program on 12/05/17.Patient to follow up with intermediate project manager residential treatment at [facility] at [address] [place] [address], requires a 30 day supply. Medications transmitted to [facility] pharmacy. Patient to follow with primary care provider.
[2017-12-04] MEDS: HYDROCORTISONE 1% TOPICAL OINT 30 GM TUBE TP PRN (17:41)
--- NOTE | 2017-12-04 17:59 | PN ---
S Progress Note Note: Call received from pharmacy reports suboxone film not covered by patients insurance but tablets are covered. rx for tablets send.
[2017-12-04] MEDS: SUVOREXANT 10 MG TABLET PO PRN (21:14)
[2017-12-04] MEDS: THIAMINE HCL 100 MG TABLET (FP) PO SCH (21:14)
[2017-12-04] MEDS: MELATONIN 5 MG TABLETS PO PRN (21:15)
[2017-12-05] MEDS: CYCLOBENZAPRINE HCL 10 MG TABLET (FP) PO PRN (06:14)
[2017-12-05] MEDS: hydrOXYzine PAMOATE 50 MG CAPSULE (FP) PO PRN (06:14)
[2017-12-05] MEDS: IBUPROFEN 400 MG TABLET (FP) PO PRN (06:14)
[2017-12-05 06:51] VITALS: BP 112/62; PULSE 68
[2017-12-05] MEDS: BUPRENORPHINE/NALOXONE 8 MG/2 MG FILM PACKET SL SCH (09:31)
[2017-12-05] MEDS: PRENATAL VITAMINS W/ FOLIC ACID TABLET (FP) PO SCH (09:31)
[2017-12-05] MEDS: PANTOPRAZOLE 20 MG TABLET (FP) PO SCH (09:31)
[2017-12-05] MEDS: NICOTINE 21 MG/24 HOURS TOPICAL PATCH TD SCH (09:52)
[2017-12-05] MEDS: NICOTINE POLACRILEX 4 MG GUM BUC PRN (10:05)
== END 2017-12-05 10:15 | disposition other institution (70) | DRG 772 ==
LOC: YASAS 14:53 → Y5N 14:54
PROVIDERS: ADMIT Psychiatry & Neurology Psychiatry; ATTEND Psychiatry & Neurology Psychiatry
PROC: HZ42ZZZ Group Counseling for Substance Abuse Treatment, Cognitive-Behavioral (ICD-10-PCS; principal; 2017-11-21)
DX: F11.20 Opioid dependence, uncomplicated (principal); F10.20 Alcohol dependence, uncomplicated; F14.20 Cocaine dependence, uncomplicated; F19.282 Other psychoactive substance dependence with psychoactive substance-induced sleep disorder; G47.00 Insomnia, unspecified; Z88.0 Allergy status to penicillin
CPT/HCPCS: 36415; 80053; 85025; 86593; 87389

== ENCOUNTER 2019-03-30 12:54 | Inpatient (IN) | payer OTHER ==
[2019-03-30 14:29] VITALS: BMI 26.2
--- NOTE | 2019-03-30 16:45 | HP ---
CIWA Score Nausea/Vomitin-No Nausea/No Vomiting Muscle Tremors: 3 Anxiety: 3 Agitation: 1-Slight > Activity Paroxysmal Sweats: 3 Orientation: 0-Oriented Tacttile Disturbances: 0-None Auditory Disturbances: 0-None Visual Disturbances: 0-None Headache: 0-None Present CIWA-Ar Total Score: 10 - Admission Criteria OASAS Guidelines: Admission for Medically Managed Detox: Requires at least one of the followin. CIWA greater than 12 2. Seizures within the past 24 hours 3. Delirium tremens within the past 24 hours 4. Hallucinations within the past 24 hours 5. Acute intervention needed for co occurring medical disorder 6. Acute intervention needed for co occurring psychiatric disorder 7. Severe withdrawal that cannot be handled at a lower level of care (continued vomiting, continued diarrhea, abnormal vital signs) requiring intravenous medication and/or fluids 8. Patient presents the following: Acute intervention needed for co-occurring med or psych disorder (MECHE: 0.96. On Prozac.) Admission Criteria Met: Admission criteria met Admitting History and Physical - Smoking History Smoking history: Current every day smoker Have you smoked in the past 12 months: Yes Aproximately how many cigarettes per day: 5 - Alcohol/Substance Use Hx Alcohol Use: Yes (Varies per week) Admission ROS [facility] Chief Complaint: Here to get straight. Allergies/Adverse Reactions: Allergies Allergy/AdvReac Type Severity Reaction Status Date / Time No Known Allergies Allergy Verified 03/30/19 14:12 History of Present Illness: 38 yo presents w/ alcohol intoxication and opioid use disorder seeking detox. Last [facility]: 11/16- MECHE: 0.096 UTox: + MOP/BUP Denies seizures, blackout, or overdoses. Alcohol use began at age 15. Currently 1 pint - 1 liter/day. Last drink just before came to facility. Opioid use began at age 28. Currently uses 3 bundles and 30 pills oxy's/day. Nasal. States last used 03/29/19 Currently on Suboxone 8 mg SL TID. Last took Suboxone 4-6 hrs ago. Nicotine use began at age 11. Smokes 1-1/2 PPD. States uses other drugs as well ([facility]/PCP). PMHx: Denies Prior EK11/16/17: NSR w/ Septal infarct, undetermined age MHHx: Insomnia. Denies depression - States takes Prozac to "balance out". States being f/u at [facility]. Denies thoughts of harming self or others. SHx: Homeless. Unemployed. Denies legal issues. Patient Name: Naeem Rivera Date: 1980 Address: [address] [place] [address] Sex: Male Rx Written Rx Dispensed Drug Quantity Days Supply Prescriber Name 03/09/2019 03/09/2019 buprenorphine-naloxone 8-2 mg sl film 42 14 Georgi Camp S 03/02/2019 03/02/2019 buprenorphine-naloxone 8-2 mg sl film 21 7 Georgi Camp S 02/26/2019 02/26/2019 buprenorphine-naloxone 8-2 mg sl film 10 5 Georgi Camp, S 12/26/2018 12/26/2018 buprenorphine-naloxone 8-2 mg sl film 30 30 Georgi Camp, Dorys 11/21/2018 11/21/2018 buprenorphine-naloxone 8-2 mg sl film 60 30 Georgi Camp S 10/03/2018 10/20/2018 buprenorphine-naloxone 8-2 mg sl film 60 30 Jenaro Zhao MD 09/04/2018 09/22/2018 buprenorphine-naloxone 8-2 mg sl film 60 30 Jenaro Zhao MD 08/07/2018 08/18/2018 buprenorphine-naloxone 8-2 mg sl film 60 30 Jenaro Zhao MD 07/09/2018 07/18/2018 buprenorphine-naloxone 8-2 mg sl film 60 30 Jenaro Zhao MD 06/20/2018 06/20/2018 buprenorphine-naloxone 8-2 mg sl film 60 30 Randall Holly MD 05/23/2018 05/26/2018 buprenorphine-naloxone 8-2 mg sl film 60 30 Randall Holly MD 05/09/2018 05/09/2018 suboxone 8 mg-2 mg sl film 28 14 Jenaro Zhao MD 04/24/2018 04/30/2018 suboxone 8 mg-2 mg sl film 14 14 Jenaro Zhao MD Patient Name: Naeem Rivera Date: 1980 Address: [address] [place] [address] Sex: Male Rx Written Rx Dispensed Drug Quantity Days Supply Prescriber Name 03/31/2018 04/02/2018 buprenorphine-naloxone 8-2 mg sl tablet 30 30 David Hutchinson MD Exam Limitations: No Limitations - Ebola screening Have you traveled outside of the country in the last 21 days: No Have you had contact with anyone from an Ebola affected area: No Have you been sick,other than usual withdrawal symptoms: No Do you have a fever: No - Review of Systems Constitutional: Changes in sleep (Difficulty falling and staying asleep - on Seroquek), Weight Stable EENT: reports: Nose Congestion Respiratory: reports: No Symptoms reported Cardiac: reports: No Symptoms Reported GI: reports: Indigestion (Heart burn - takes prilosec) : reports: No Symptoms Reported Musculoskeletal: reports: Back Pain (Chronic achy, sore back pain. Occ sciatica. "0" pain at this time. Pain increases w/ lifting and sittibg or laying the wrong way. Improves w/ ice and heat packs/pain meds. "Drugs") Integumentary: reports: Rash (Exzema - generalized) Neuro: reports: Numbness (feet/ legs/hands) Endocrine: reports: Increased Thirst Hematology: reports: No Symptoms Reported Psychiatric: reports: Judgement Intact, Orientated x3, Agitated, Anxious Patient History - Patient Medical History Hx Anemia: No Hx Asthma: No Hx Chronic Obstructive Pulmonary Disease (COPD): No Hx Cancer: No Hx Cardiac Disorders: No Hx Congestive Heart Failure: No Hx Hypertension: No Hx Pacemaker: No Hx Seizures: No Hx Dementia: No Hx Diabetes: No Hx Gastrointestinal Disorders: No Hx Liver Disease: No Hx Genitourinary Disorders: No Hx Sexually Transmitted Disorders: No Hx Renal Disease (ESRD): No Hx Thyroid Disease: No Hx Human Immunodeficiency Virus (HIV): No Hx Hepatitis C: No Hx Depression: Yes Hx Suicide Attempt: No Hx Bipolar Disorder: No Hx Schizophrenia: No - Patient Surgical History Past Surgical History: No Hx Neurologic Surgery: No Hx Cataract Extraction: No Hx Cardiac Surgery: No Hx Lung Surgery: No Hx Breast Surgery: No Hx Breast Biopsy: No Hx Abdominal Surgery: No Hx Appendectomy: No Hx Cholecystectomy: No Hx Genitourinary Surgery: No Hx Section: No Hx Orthopedic Surgery: No Anesthesia Reaction: No - PPD History Previous Implant?: Yes Documented Results: Negative w/proof Date: 11/23/17 (States [facility] 2 weeks ago. ) PPD to be Administered?: No - Smoking Cessation Smoking history: Current every day smoker Have you smoked in the past 12 months: Yes Aproximately how many cigarettes per day: 30 Hx Chewing Tobacco Use: No Initiated information on smoking cessation: Yes 'Breaking Loose' booklet given: 03/30/19 - Substance & Tx. History Hx Alcohol Use: Yes Hx Substance Use: Yes Substance Use Type: Alcohol, Cocaine, Heroin, Opiates Hx Substance Use Treatment: Yes (detox, rehab, Suboxone) - Substances abused Alcohol Substance route: Oral Frequency: Daily Amount used: 5th of vodka or 12 beers Age of first use: 12 Date of last use: 03/30/19 Cocaine Substance route: Inhalation Frequency: Daily Amount used: 1-3 grams Age of first use: 16 Date of last use: 03/23/19 Heroin Substance route: Inhalation Frequency: Daily Amount used: 10-30 bags Age of first use: 28 Date of last use: 03/30/19 Other Other (specify): percocets Substance route: Oral Frequency: Daily Amount used: 30mg Age of first use: 28 Date of last use: 03/29/19 Oxycontin Substance route: Oral Frequency: Daily Amount used: 10mg Age of first use: 28 Date of last use: 03/29/19 Admission Physical Exam S - Vital Signs Vital Signs: Vital Signs - 24 hr 03/30/19 14:19 Temperature 97.9 F Pulse Rate 69 Respiratory 18 Rate Blood Pressure 101/59 L - Physical General Appearance: Yes: Nourished, Mild Distress, Intoxicated (MECHE: 0.096), Irritable, Anxious HEENTM: Yes: EOMI, Hearing grossly Normal, Normocephalic, Normal Voice, YARY, Pharynx Normal Respiratory: Yes: Lungs Clear (Pulse Ox = 97 %), Normal Breath Sounds, No Respiratory Distress Neck: Yes: No masses,lesions,Nodules, Supple Breast: Yes: Breast Exam Deferred Cardiology: Yes: Regular Rhythm, Regular Rate, S1, S2 Abdominal: Yes: Normal Bowel Sounds, Non Tender, Flat, Soft Genitourinary: Yes: Within Normal Limits Back: Yes: Normal Inspection Musculoskeletal: Yes: full range of Motion, Gait Steady Extremities: Yes: Normal Capillary Refill (Periph. pulses +) Neurological: Yes: education administrative assistant II-XII NML intact, Fully Oriented, Alert, Motor Strength 5/5, Other (Drowsy) Integumentary: Yes: Normal Color, Warm, Rash (Scattered redish, flaky rashes on neck, arms, facial area), Other (Papular lesion below middle lower lip) Lymphatic: Yes: Within Normal Limits - Diagnostic (1) Alcohol dependence with withdrawal, uncomplicated Current Visit: Yes Status: Acute (2) Encounter for monitoring Suboxone maintenance therapy Current Visit: Yes Status: Chronic (3) Opioid dependence Current Visit: Yes Status: Acute Qualifiers: Substance use status: uncomplicated Qualified Code(s): F11.20 - Opioid dependence, uncomplicated Comment: Continues to use heroin while on Suboxone (4) Nicotine dependence Current Visit: No Status: Chronic Qualifiers: Nicotine product type: cigarettes Substance use status: in withdrawal Qualified Code(s): F17.213 - Nicotine dependence, cigarettes, with withdrawal Cleared for Admission [facility] - Detox or Rehab [facility] Level of Care: Medically Managed Detox Regimen/Protocol: Librium Claeared for Rehab Admission: No Breathalyzer - Breathalyzer Breathalyzer: 0.096 Urine Drug Screen - Test Device Lot number: [id number] Expiration date: 10/15/20 - Control Is test valid?: Yes - Results Drug screen NEGATIVE: No Urine drug screen results: MOP-Opiates, BUP-Suboxone Inpatient Rehab Admission - Rehab Decision to Admit Inpatient rehab admission?: No
[2019-03-30] MEDS ORDERED: ACETAMINOPHEN 325 MG TABLET (FP) PO PRN ×2 (17:09)
[2019-03-30] MEDS ORDERED: BISMUTH SUBSALICYLATE 524 MG/30 ML UD PO PRN (17:09)
[2019-03-30] MEDS ORDERED: MENTHOL/PHENOL 1 EACH UD MM PRN (17:09)
[2019-03-30] MEDS ORDERED: PROCHLORPERAZINE MALEATE 5 MG TABLET PO PRN (17:09)
[2019-03-30] MEDS ORDERED: MAG HYDROX/AL HYDROX/SIMETH 30 ML UNIT-DOSE CUP PO PRN (17:09)
[2019-03-30] MEDS ORDERED: NICOTINE POLACRILEX 4 MG GUM BUC PRN (17:09)
[2019-03-30] MEDS ORDERED: MAGNESIUM CITRATE 300 ML BOTTLE PO PRN (17:09)
[2019-03-30] MEDS ORDERED: MAGNESIUM HYDROX 2400MG/30ML ORAL SUSPENSION 30 ML CUP PO PRN (17:09)
[2019-03-30] MEDS: MELATONIN 5 MG TABLETS PO PRN (22:16)
[2019-03-30] MEDS: THIAMINE HCL 100 MG TABLET (FP) PO SCH (22:16)
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
[2019-03-31] MEDS: METHOCARBAMOL 500 MG TABLET PO PRN ×3 (08:33→22:23)
[2019-03-31] MEDS ORDERED: chlordiazePOXIDE HCL 25 MG CAPSULE PO ONE (08:41)
[2019-03-31 09:43] LABS: HEMATOCRIT 34.9 % (35.4-49); HEMOGLOBIN 12.1 GM/dL (11.7-16.9); MCH 31.4 pg (25.7-33.7); MCHC 34.7 g/dl (32.0-35.9); MEAN CELL VOLUME 90.4 fl (80-96); MEAN PLT VOLUME 9.9 fl (7.5-11.1); PLATELET COUNT 184 K/MM3 (134-434); RBC 3.86 M/mm3 (4.00-5.60); RDW 13.1 % (11.9-15.9)
[2019-03-31] MEDS ORDERED: BUPRENORPHINE/NALOXONE 8 MG/2 MG FILM PACKET SL ONE (10:00)
[2019-03-31 10:06] LABS: ALBUMIN 3.8 g/dl (3.4-5.0); BILIRUBIN,TOTAL 0.6 mg/dL (0.2-1); BLOOD UREA NITROGEN 18.3 mg/dL (7-18); CREATININE 0.9 mg/dL (0.55-1.3); POTASSIUM 4.3 mmol/L (3.5-5.1)
--- NOTE | 2019-03-31 10:20 | PN ---
S CIWA - CIWA Score Nausea/Vomitin Muscle Tremors: 2 Anxiety: 2 Agitation: 2 Paroxysmal Sweats: No Perspiration Orientation: 0-Oriented Tacttile Disturbances: 1-Very Mild Itch/Numbness Auditory Disturbances: 0-None Visual Disturbances: 0-None Headache: 2-Mild CIWA-Ar Total Score: 11 S Progress Note (SOAP) Subjective: alert,irritable,anxious,interrupted sleep,pain in the body Objective: 03/31/19 10:17 Vital Signs Temperature 97.5 F L 03/31/19 05:00 Pulse Rate 70 03/31/19 05:00 Respiratory Rate 18 03/31/19 05:00 Blood Pressure 110/60 03/31/19 05:00 O2 Sat by Pulse Oximetry (%) Laboratory Last Values WBC 5.0 K/mm3 (4.0-10.0) 03/31/19 07:20 RBC 3.86 M/mm3 (4.00-5.60) L 03/31/19 07:20 Hgb 12.1 GM/dL (11.7-16.9) 03/31/19 07:20 Hct 34.9 % (35.4-49) L 03/31/19 07:20 MCV 90.4 fl (80-96) 03/31/19 07:20 MCH 31.4 pg (25.7-33.7) 03/31/19 07:20 MCHC 34.7 g/dl (32.0-35.9) 03/31/19 07:20 RDW 13.1 % (11.9-15.9) 03/31/19 07:20 Plt Count 184 K/MM3 (134-434) D 03/31/19 07:20 MPV 9.9 fl (7.5-11.1) 03/31/19 07:20 Sodium 140 mmol/L (136-145) 03/31/19 07:20 Potassium 4.3 mmol/L (3.5-5.1) 03/31/19 07:20 Chloride 106 mmol/L (98-107) 03/31/19 07:20 Carbon Dioxide 29 mmol/L (21-32) 03/31/19 07:20 Anion Gap 5 MMOL/L (8-16) L 03/31/19 07:20 BUN 18.3 mg/dL (7-18) H 03/31/19 07:20 Creatinine 0.9 mg/dL (0.55-1.3) 03/31/19 07:20 Est GFR (CKD-EPI)AfAm 125.13 03/31/19 07:20 Est GFR (CKD-EPI)NonAf 107.97 03/31/19 07:20 Random Glucose 97 mg/dL (74-106) 03/31/19 07:20 Calcium 9.0 mg/dL (8.5-10.1) 03/31/19 07:20 Total Bilirubin 0.6 mg/dL (0.2-1) 03/31/19 07:20 AST 20 U/L (15-37) 03/31/19 07:20 ALT 31 U/L (13-61) 03/31/19 07:20 Alkaline Phosphatase 70 U/L (45-117) 03/31/19 07:20 Total Protein 7.0 g/dl (6.4-8.2) 03/31/19 07:20 Albumin 3.8 g/dl (3.4-5.0) 03/31/19 07:20 Assessment: 03/31/19 10:17 withdrawal symptom Plan: continue detox librium regimen,encourage oral fluid initial bun is 18.3 probably due to dehydration,patient on suboxone maintenance 8mg/2mg sl tid verified on [facility]
[2019-03-31] MEDS: FLUoxetine HCL 20 MG CAPSULE PO SCH (10:25)
[2019-03-31] MEDS: NICOTINE 21 MG/24 HOURS TOPICAL PATCH TD SCH (10:25)
[2019-03-31] MEDS: PRENATAL VITAMINS W/ FOLIC ACID TABLET (FP) PO SCH (10:25)
[2019-03-31] MEDS: PANTOPRAZOLE 20 MG TABLET PO SCH (10:25)
--- NOTE | 2019-03-31 12:45 | EKG ---
Test Reason : Blood Pressure : / mmHG Vent. Rate : 066 BPM Atrial Rate : 066 BPM P-R Int : 182 ms QRS Dur : 086 ms QT Int : 408 ms P-R-T Axes : 046 020 022 degrees QTc Int : 427 ms NORMAL SINUS RHYTHM NORMAL ECG Confirmed by MD PEREYRA GREGORY ([id number]) on 03/31/2019 12:44:37 PM Referred By: Confirmed By:SADIE PEREYRA MD
[2019-03-31] MEDS: BUPRENORPHINE/NALOXONE 8 MG/2 MG FILM PACKET SL SCH ×2 (13:57→22:18)
[2019-03-31] MEDS: chlordiazePOXIDE HCL 25 MG CAPSULE PO SCH ×2 (13:57→22:18)
--- NOTE | 2019-03-31 15:32 | EKG ---
Test Reason : Blood Pressure : / mmHG Vent. Rate : 058 BPM Atrial Rate : 058 BPM P-R Int : 174 ms QRS Dur : 096 ms QT Int : 426 ms P-R-T Axes : 060 031 023 degrees QTc Int : 418 ms SINUS BRADYCARDIA WITH SINUS ARRHYTHMIA MINIMAL VOLTAGE CRITERIA FOR LVH, MAY BE NORMAL VARIANT BORDERLINE ECG WHEN COMPARED WITH ECG OF 30-MAR-2019 17:30, NO SIGNIFICANT CHANGE WAS FOUND Confirmed by MD Naveen, Alban ([id number]) on 03/31/2019 3:31:32 PM Referred By: DEBBIE Confirmed By:Alban Hodge MD
[2019-03-31] MEDS: IBUPROFEN 400 MG TABLET (FP) PO PRN (19:50)
[2019-03-31] MEDS: chlordiazePOXIDE HCL 10 MG CAPSULE PO PRN (19:50)
[2019-03-31] MEDS ORDERED: SUVOREXANT 10 MG TABLET PO PRN (22:00)
[2019-03-31] MEDS: FLUOCINONIDE 0.05% CREAM (15 GM TUBE) TP SCH (22:18)
[2019-03-31] MEDS: THIAMINE HCL 100 MG TABLET (FP) PO SCH (22:18)
[2019-03-31] MEDS: TOLNAFTATE 1% CREAM 15 GM TUBE TP SCH (22:19)
[2019-04-01] MEDS: BUPRENORPHINE/NALOXONE 8 MG/2 MG FILM PACKET SL SCH ×3 (06:08→22:08)
[2019-04-01] MEDS: chlordiazePOXIDE HCL 25 MG CAPSULE PO SCH ×3 (06:08→22:08)
[2019-04-01] MEDS: METHOCARBAMOL 500 MG TABLET PO PRN ×3 (06:09→19:33)
[2019-04-01] MEDS: NICOTINE 21 MG/24 HOURS TOPICAL PATCH TD SCH (11:07)
[2019-04-01] MEDS: FLUOCINONIDE 0.05% CREAM (15 GM TUBE) TP SCH ×2 (11:13→22:08)
[2019-04-01] MEDS: TOLNAFTATE 1% CREAM 15 GM TUBE TP SCH ×2 (11:14→22:08)
[2019-04-01] MEDS: PRENATAL VITAMINS W/ FOLIC ACID TABLET (FP) PO SCH (11:14)
[2019-04-01] MEDS: PANTOPRAZOLE 20 MG TABLET PO SCH (13:00)
--- NOTE | 2019-04-01 14:06 | PN ---
[facility] CIWA - CIWA Score Nausea/Vomitin-Mild Nausea/No Vomiting Muscle Tremors: 2 Anxiety: 2 Agitation: 2 Paroxysmal Sweats: No Perspiration Orientation: 0-Oriented Tacttile Disturbances: 1-Very Mild Itch/Numbness Auditory Disturbances: 0-None Visual Disturbances: 0-None Headache: 2-Mild CIWA-Ar Total Score: 10 BHS Progress Note (SOAP) Subjective: aleert,irritable,anxious,interrupted sleep,pain in the body Objective: 04/01/19 14:05 Vital Signs Temperature 97.5 F L 04/01/19 10:00 Pulse Rate 65 04/01/19 10:00 Respiratory Rate 18 04/01/19 10:00 Blood Pressure 130/71 04/01/19 10:00 O2 Sat by Pulse Oximetry (%) Assessment: 04/01/19 14:05 withdrawal symptom Plan: continue detox librium regimen,fluid
[2019-04-01] MEDS: FLUoxetine HCL 20 MG CAPSULE PO SCH (15:35)
[2019-04-01] MEDS: chlordiazePOXIDE HCL 10 MG CAPSULE PO PRN (19:33)
[2019-04-01] MEDS: THIAMINE HCL 100 MG TABLET (FP) PO SCH (22:08)
[2019-04-01] MEDS: MELATONIN 5 MG TABLETS PO PRN (22:12)
[2019-04-02] MEDS: METHOCARBAMOL 500 MG TABLET PO PRN ×2 (02:57→11:05)
[2019-04-02] MEDS: chlordiazePOXIDE HCL 10 MG CAPSULE PO PRN ×2 (02:58→11:04)
[2019-04-02] MEDS ORDERED: chlordiazePOXIDE 5 MG CAPSULE PO SCH (05:00)
[2019-04-02] MEDS: BUPRENORPHINE/NALOXONE 8 MG/2 MG FILM PACKET SL SCH (05:54)
[2019-04-02] MEDS: IBUPROFEN 400 MG TABLET (FP) PO PRN (06:00)
[2019-04-02 09:54] VITALS: BP 128/63; PULSE 70; TEMP 97.9
--- NOTE | 2019-04-02 10:47 | PN ---
S CIWA - CIWA Score Nausea/Vomitin-No Nausea/No Vomiting Muscle Tremors: 2 Anxiety: 3 Agitation: 1-Slight > Activity Paroxysmal Sweats: 1-Minimal Palms Moist Orientation: 0-Oriented Tacttile Disturbances: 1-Very Mild Itch/Numbness Auditory Disturbances: 0-None Visual Disturbances: 0-None Headache: 0-None Present CIWA-Ar Total Score: 8 BHS Progress Note (SOAP) Subjective: Patient w/ hx of opioid and alcohol dependence is here for alcohol detox on librium protocol on MAT BUP c/o of back pain, interrupted sleep, chills Objective: 04/02/19 10:48 Vital Signs Temperature 97.9 F 04/02/19 09:53 Pulse Rate 70 04/02/19 09:53 Respiratory Rate 18 04/02/19 09:53 Blood Pressure 128/63 04/02/19 09:53 O2 Sat by Pulse Oximetry (%) Laboratory Last Values WBC 5.0 K/mm3 (4.0-10.0) 03/31/19 07:20 RBC 3.86 M/mm3 (4.00-5.60) L 03/31/19 07:20 Hgb 12.1 GM/dL (11.7-16.9) 03/31/19 07:20 Hct 34.9 % (35.4-49) L 03/31/19 07:20 MCV 90.4 fl (80-96) 03/31/19 07:20 MCH 31.4 pg (25.7-33.7) 03/31/19 07:20 MCHC 34.7 g/dl (32.0-35.9) 03/31/19 07:20 RDW 13.1 % (11.9-15.9) 03/31/19 07:20 Plt Count 184 K/MM3 (134-434) D 03/31/19 07:20 MPV 9.9 fl (7.5-11.1) 03/31/19 07:20 Sodium 140 mmol/L (136-145) 03/31/19 07:20 Potassium 4.3 mmol/L (3.5-5.1) 03/31/19 07:20 Chloride 106 mmol/L (98-107) 03/31/19 07:20 Carbon Dioxide 29 mmol/L (21-32) 03/31/19 07:20 Anion Gap 5 MMOL/L (8-16) L 03/31/19 07:20 BUN 18.3 mg/dL (7-18) H 03/31/19 07:20 Creatinine 0.9 mg/dL (0.55-1.3) 03/31/19 07:20 Est GFR (CKD-EPI)AfAm 125.13 03/31/19 07:20 Est GFR (CKD-EPI)NonAf 107.97 03/31/19 07:20 Random Glucose 97 mg/dL (74-106) 03/31/19 07:20 Calcium 9.0 mg/dL (8.5-10.1) 03/31/19 07:20 Total Bilirubin 0.6 mg/dL (0.2-1) 03/31/19 07:20 AST 20 U/L (15-37) 03/31/19 07:20 ALT 31 U/L (13-61) 03/31/19 07:20 Alkaline Phosphatase 70 U/L (45-117) 03/31/19 07:20 Total Protein 7.0 g/dl (6.4-8.2) 03/31/19 07:20 Albumin 3.8 g/dl (3.4-5.0) 03/31/19 07:20 RPR Titer Nonreactive (NONREACTIVE) 03/31/19 07:20 labs reviewed Assessment: 04/02/19 10:48 Aox3 no acute distress EENT WNL Full ROM ambulating in the unit withdrawal sx Plan: increase fluids continue detox follow up with PCP upon discharge continue to monitor
[2019-04-02] MEDS: FLUoxetine HCL 20 MG CAPSULE PO SCH (10:57)
[2019-04-02] MEDS: PRENATAL VITAMINS W/ FOLIC ACID TABLET (FP) PO SCH (10:58)
[2019-04-02] MEDS: FLUOCINONIDE 0.05% CREAM (15 GM TUBE) TP SCH (10:58)
[2019-04-02] MEDS: PANTOPRAZOLE 20 MG TABLET PO SCH (10:58)
[2019-04-02] MEDS: NICOTINE 21 MG/24 HOURS TOPICAL PATCH TD SCH (10:59)
[2019-04-03] MEDS ORDERED: chlordiazePOXIDE HCL 10 MG CAPSULE PO PRN
[2019-04-03] MEDS ORDERED: chlordiazePOXIDE HCL 10 MG CAPSULE PO SCH (05:00)
[2019-04-04] MEDS ORDERED: chlordiazePOXIDE HCL 10 MG CAPSULE PO ONE (05:00)
== END 2019-04-02 11:50 | disposition left against medical advice (07) | DRG 770 ==
LOC: YASAS 12:54 → Y6N 17:35
PROVIDERS: ADMIT Allergy & Immunology; ATTEND Allergy & Immunology
PROC: HZ2ZZZZ Detoxification Services for Substance Abuse Treatment (ICD-10-PCS; principal; 2019-03-30)
DX: F10.230 Alcohol dependence with withdrawal, uncomplicated (principal); F11.20 Opioid dependence, uncomplicated; F14.20 Cocaine dependence, uncomplicated; F17.210 Nicotine dependence, cigarettes, uncomplicated; F19.280 Other psychoactive substance dependence with psychoactive substance-induced anxiety disorder; F19.282 Other psychoactive substance dependence with psychoactive substance-induced sleep disorder; F32.9 Major depressive disorder, single episode, unspecified; Z51.81 Encounter for therapeutic drug level monitoring; Z59.0 Homelessness
CPT/HCPCS: 36415; 80053; 85027; 86593; 93005; 93010

== ENCOUNTER 2019-10-01 10:39 | Inpatient (IN) | payer OTHER ==
--- NOTE | 2019-10-01 11:16 | BHS.RME ---
Substance Use & Tx History - Substance Use History Heroin Substance amount: 1-1.5 bundles Frequency of use: Daily Substance route: Inhalation (ex: sniffing or snorting) Date of Last Use: 09/30/19 Alcohol Substance amount: 6 pack + vodka Nicotine Substance amount: 1 pack Frequency of use: Daily Substance route: Smoking Date of Last Use: 10/01/19 Physical/Psych/Mental Status - Behavior General Behavior: Increased activity (restlessness, agitation) Eye Contact: Normal - Cooperativeness Cooperativeness: Cooperative - Thinking Thought Processes: Tight, Logical, Goal Directed - Physical Health Problems Is patient presently having any pain?: No Does patient presently have any injuries (include location): No Does patient currently have a fever: No Is patient : No COWS - Scale Resting Pulse: 1= IN 81-100 Sweatin= Chills/Flushing Restless Observation: 1= Difficult to Sit Still Pupil Size: 1= Pupils >than Normal Bone or Joint Aches: 2= Severe Diffuse Aches Runny Nose/ Eye Tearin= Runny Nose/Eyes GI Upset > 30mins: 3= Vomiting/Diarrhea Tremor Observation: 2= Slight Tremor Visible Yawning Observation: 1= 1-2x During Session Anxiety or Irritability: 1=Feels Anxious/Irritable Goose Flesh Skin: 0=Smooth Skin COWS Score: 15 CIWA Nausea/Vomitin Muscle Tremors: 4-Moderate,w/Arms Extend Anxiety: 3 Agitation: 3 Paroxysmal Sweats: 3 Orientation: 1-Uncertain about Date Tacttile Disturbances: 0-None Auditory Disturbances: 0-None Visual Disturbances: 0-None Headache: 0-None Present CIWA-Ar Total Score: 17
[2019-10-01 12:22] VITALS: BMI 26.1
--- NOTE | 2019-10-01 12:28 | HP ---
COWS - Scale Resting Pulse: 1= TN 81-100 Sweatin= Chills/Flushing Restless Observation: 1= Difficult to Sit Still Pupil Size: 1= Pupils >than Normal Bone or Joint Aches: 2= Severe Diffuse Aches Runny Nose/ Eye Tearin= Runny Nose/Eyes GI Upset > 30mins: 3= Vomiting/Diarrhea Tremor Observation: 2= Slight Tremor Visible Yawning Observation: 1= 1-2x During Session Anxiety or Irritability: 1=Feels Anxious/Irritable Goose Flesh Skin: 0=Smooth Skin COWS Score: 15 CIWA Score Nausea/Vomitin Muscle Tremors: 4-Moderate,w/Arms Extend Anxiety: 3 Agitation: 3 Paroxysmal Sweats: 3 Orientation: 1-Uncertain about Date Tacttile Disturbances: 0-None Auditory Disturbances: 0-None Visual Disturbances: 0-None Headache: 0-None Present CIWA-Ar Total Score: 17 - Admission Criteria OASAS Guidelines: Admission for Medically Managed Detox: Requires at least one of the followin. CIWA greater than 12 2. Seizures within the past 24 hours 3. Delirium tremens within the past 24 hours 4. Hallucinations within the past 24 hours 5. Acute intervention needed for co occurring medical disorder 6. Acute intervention needed for co occurring psychiatric disorder 7. Severe withdrawal that cannot be handled at a lower level of care (continued vomiting, continued diarrhea, abnormal vital signs) requiring intravenous medication and/or fluids 8. Admitting History and Physical - Admission Chief Complaint: Mr. Rivera is a 39 yo gentleman who presents to [facility] requesting admission to detox for heroin and alcohol use. History of Present Illness: Mr. Rivera is a 39 yo gentleman who presents to [facility] requesting admission to detox for heroin and alcohol use. He was last here between September 04 and 2019, he left [place]. He returned 09/25, but there were no beds available and was sent home. PMH/Psych/Legal: none PSH: tonsils SOC: has a voucher for housing - Substance Use History Heroin Substance amount: 1-1.5 bundles Frequency of use: Daily Substance route: Inhalation (ex: sniffing or snorting) Date of Last Use: 09/30/19 First use age 27 y Hx of OD x 3. last OD was 2 months ago. No Narcan at home. Alcohol Substance amount: 6 pack + vodka Fist use age 15 y No seiuzres Blackouts, last one one year ago Admits to an eyeopener Nicotine Substance amount: 1 pack Frequency of use: Daily Substance route: Smoking Date of Last Use: 10/01/19 First use age 15 y BZO; denies Suboxone: [facility]: abstinent 15 mos, relapsed Others' Prescriptions Patient Name: Naeem RiveraBirth Date: 1980 Address: [address], [place] [address]Gdt: Male Rx Written Rx Dispensed Drug Quantity Days Supply Prescriber Name Payment Method Dispenser 04/23/2019 04/24/2019 buprenorphine-naloxone 8-2 mg sl tablet 60 30 Iggy Stevens Medicaid [facility] Patient Name: Naeem RiveraBirth Date: 1980 Address: [address] [place] [id number]: Male Rx Written Rx Dispensed Drug Quantity Days Supply Prescriber Name Payment Method Dispenser 05/25/2019 05/25/2019 buprenorphine-naloxone 8-2 mg sl film 60 30 Millicent Lofton (DENTAL CERAMIST) Medicaid [facility] 05/07/2019 05/07/2019 buprenorphine-naloxone 8-2 mg sl film [facility] Name: Naeem RiveraBirth Date: 1980 Address: [address] [place] [id number]: Male Rx Written Rx Dispensed Drug Quantity Days Supply Prescriber Name Payment Method Dispenser 07/29/2019 08/08/2019 buprenorphine-naloxone 8-2 mg sl film 14 7 Lisette Carlson DENTAL CERAMIST Medicaid [facility][id number] 08/05/2019 08/08/2019 buprenorphine-naloxone 8-2 mg sl film 14 7 Lisette Carlson DENTAL CERAMIST Medicaid [facility] #[id number] 07/18/2019 07/19/2019 buprenorphine-naloxone 8-2 mg sl film 14 7 Lisette Carlson DENTAL CERAMIST Medicaid [facility] #[id number] 07/10/2019 07/10/2019 buprenorphine-naloxone 8-2 mg sl film 14 7 Lisette Carlson DENTAL CERAMIST Medicaid [facility] #[id number] Patient Name: Naeem RiveraBirth Date: 1980 Address: [address] [place] [id number]: Male Rx Written Rx Dispensed Drug Quantity Days Supply Prescriber Name Payment Method Dispenser 03/09/2019 03/09/2019 buprenorphine-naloxone 8-2 mg sl film 42 14 Georgi Camp S Insurance [facility] History Source: Patient Limitations to Obtaining History: No Limitations - Past Medical History FIRST LEVELER: Yes: Syncope Gastrointestinal: Yes: GERD Psych: Yes: Addictions - Past Surgical History Past Surgical History: Yes: Tonsillectomy - Smoking History Smoking history: Current every day smoker Have you smoked in the past 12 months: Yes Aproximately how many cigarettes per day: 20 - Alcohol/Substance Use Hx Alcohol Use: Yes History of Substance Use: reports: Heroin Date of Last Use: 09/05/19 - Social History ADL: Support Services Occupation: unemployed History of Recent Travel: No Admission [facility] Allergies/Adverse Reactions: Allergies Allergy/AdvReac Type Severity Reaction Status Date / Time No Known Allergies Allergy Verified 10/01/19 12:16 Exam Limitations: No Limitations - Ebola screening Have you traveled outside of the country in the last 21 days: No Have you been sick,other than usual withdrawal symptoms: No Do you have a fever: No - Review of Systems Constitutional: Chills EENT: reports: Nose Congestion Respiratory: reports: No Symptoms reported Cardiac: reports: No Symptoms Reported GI: reports: Nausea : reports: No Symptoms Reported Musculoskeletal: reports: Back Pain Integumentary: reports: No Symptoms Reported Neuro: reports: No Symptoms reported Endocrine: reports: No Symptoms Reported Hematology: reports: No Symptoms Reported Psychiatric: reports: Anxious Patient History - Patient Medical History Hx Anemia: No Hx Asthma: No Hx Chronic Obstructive Pulmonary Disease (COPD): No Hx Cancer: No Hx Cardiac Disorders: No Hx Congestive Heart Failure: No Hx Hypertension: No Hx Pacemaker: No Hx Seizures: No Hx Dementia: No Hx Diabetes: No Hx Gastrointestinal Disorders: No Hx Liver Disease: No Hx Genitourinary Disorders: No Hx Sexually Transmitted Disorders: No Hx Renal Disease (ESRD): No Hx Thyroid Disease: No Hx Human Immunodeficiency Virus (HIV): No (laST 03/2019 NEGATIVE) Hx Hepatitis C: No Hx Depression: Yes Hx Suicide Attempt: No Hx Bipolar Disorder: No Hx Schizophrenia: No - Patient Surgical History Past Surgical History: No Hx Neurologic Surgery: No Hx Cataract Extraction: No Hx Cardiac Surgery: No Hx Lung Surgery: No Hx Breast Surgery: No Hx Breast Biopsy: No Hx Abdominal Surgery: No Hx Appendectomy: No Hx Cholecystectomy: No Hx Genitourinary Surgery: No Hx Section: No Hx Orthopedic Surgery: No Other Surgical History: TONSILLECTOY AT AGE OF 88 YEARS OLD Anesthesia Reaction: No - PPD History Date: 11/23/17 - Smoking Cessation Smoking history: Current every day smoker Have you smoked in the past 12 months: Yes Aproximately how many cigarettes per day: 20 Hx Chewing Tobacco Use: No Initiated information on smoking cessation: Yes 'Breaking Loose' booklet given: 10/01/19 Admission Physical Exam [facility] - Physical General Appearance: Yes: Nourished, Appropriately Dressed, Mild Distress, Anxious HEENTM: Yes: EOMI, Hearing grossly Normal, Normocephalic, Normal Voice Respiratory: Yes: Lungs Clear, Normal Breath Sounds Neck: Yes: Within Normal Limits, Supple Breast: Yes: Breast Exam Deferred Cardiology: Yes: Regular Rhythm, Regular Rate, S1, S2 Abdominal: Yes: Normal Bowel Sounds, Non Tender, Flat, Soft Back: Yes: Normal Inspection Musculoskeletal: Yes: Gait Steady Extremities: Yes: Normal Inspection, Non-Tender Neurological: Yes: Normal Response Integumentary: Yes: Normal Color, Dry, Warm, Other (superficial scar left upper posterior thorax, pt not aware, ~6") Cleared for Admission [facility] - Detox or Rehab [facility] Level of Care: Medically Managed Detox Regimen/Protocol: Methadone/Librium Breathalyzer - Breathalyzer Breathalyzer: 0 Urine Drug Screen - Test Device Lot number: [id number] Expiration date: 11/14/20 - Control Is test valid?: Yes - Results Drug screen NEGATIVE: No Urine drug screen results: FEN-Fentanyl, MOP-Opiates, BZO-Benzodiazepines Inpatient Rehab Admission - Rehab Decision to Admit Inpatient rehab admission?: No
[2019-10-01] MEDS ORDERED: MAGNESIUM CITRATE 300 ML BOTTLE PO PRN (12:42)
[2019-10-01] MEDS ORDERED: ACETAMINOPHEN 325 MG TABLET (FP) PO PRN (12:42)
[2019-10-01] MEDS ORDERED: NICOTINE POLACRILEX 2 MG GUM BUC PRN (12:42)
[2019-10-01] MEDS ORDERED: MAG HYDROX/AL HYDROX/SIMETH 30 ML UNIT-DOSE CUP PO PRN (12:42)
[2019-10-01] MEDS ORDERED: MENTHOL/PHENOL 1 EACH UD MM PRN (12:42)
[2019-10-01] MEDS ORDERED: METHADONE HCL 10 MG TABLET (FOR DETOX USE ONLY) PO ONE (12:42)
[2019-10-01] MEDS ORDERED: chlordiazePOXIDE HCL 25 MG CAPSULE PO PRN (12:42)
[2019-10-01] MEDS ORDERED: MAGNESIUM HYDROX 2400MG/30ML ORAL SUSPENSION 30 ML CUP PO PRN (12:42)
[2019-10-01] MEDS ORDERED: BISMUTH SUBSALICYLATE 262 MG/15 ML BTL PO PRN (12:42)
[2019-10-01] MEDS: NICOTINE 21 MG/24 HOURS TOPICAL PATCH TD SCH (13:22)
[2019-10-01] MEDS ORDERED: hydrOXYzine PAMOATE 25 MG CAPSULE (FP) PO SCH (14:00)
--- NOTE | 2019-10-01 14:57 | EKG ---
Test Reason : Blood Pressure : / mmHG Vent. Rate : 064 BPM Atrial Rate : 064 BPM P-R Int : 176 ms QRS Dur : 088 ms QT Int : 386 ms P-R-T Axes : 050 021 024 degrees QTc Int : 398 ms NORMAL SINUS RHYTHM WITH SINUS ARRHYTHMIA SEPTAL INFARCT , AGE UNDETERMINED ABNORMAL ECG WHEN COMPARED WITH ECG OF 31-MAR-2019 09:46, NO SIGNIFICANT CHANGE WAS FOUND Confirmed by MAMADOU MARIA MD ([id number]) on 10/01/2019 2:57:04 PM Referred By: Confirmed By:MAMADOU MARIA MD
--- NOTE | 2019-10-01 17:10 | PN ---
[facility] Progress Note Note: Psychiatric nurse practitioner note: [employer]ical [employer] Administrative Workers attempted to see patient concerning psychiatric consultation but patient politely declined. Stated to narrative writer he prefers to wait until tomorrow as he is tired.
[2019-10-01 17:19] LABS: HEMATOCRIT 39.6 % (35.4-49); HEMOGLOBIN 13.7 GM/dL (11.7-16.9); MCH 31.1 pg (25.7-33.7); MCHC 34.7 g/dl (32.0-35.9); MEAN CELL VOLUME 89.7 fl (80-96); MEAN PLT VOLUME 10.1 fl (7.5-11.1); PLATELET COUNT 250 K/MM3 (134-434); RBC 4.42 M/mm3 (4.00-5.60); RDW 12.5 % (11.9-15.9); WHITE BLOOD COUNT 6.2 K/mm3 (4.0-10.0)
[2019-10-01] MEDS: chlordiazePOXIDE HCL 25 MG CAPSULE PO SCH ×2 (17:25→22:11)
[2019-10-01] MEDS: METHOCARBAMOL 500 MG TABLET PO PRN (17:25)
[2019-10-01] MEDS: IBUPROFEN 400 MG TABLET (FP) PO PRN (17:25)
[2019-10-01 17:37] LABS: ALBUMIN 4.1 g/dl (3.4-5.0); BILIRUBIN,TOTAL 0.8 mg/dL (0.2-1); BLOOD UREA NITROGEN 13.9 mg/dL (7-18); CALCIUM 9.1 mg/dL (8.5-10.1); CREATININE 0.9 mg/dL (0.55-1.3); POTASSIUM 4.4 mmol/L (3.5-5.1); TOT PROT 7.8 g/dl (6.4-8.2)
[2019-10-01] MEDS: cloNIDine HCL 0.1 MG TABLET PO PRN (19:44)
[2019-10-01] MEDS: THIAMINE HCL 100 MG TABLET (FP) PO SCH (22:11)
[2019-10-01] MEDS: MELATONIN 5 MG TABLETS PO SCH (22:11)
[2019-10-02] MEDS: chlordiazePOXIDE HCL 25 MG CAPSULE PO SCH ×2 (04:15→10:26)
[2019-10-02] MEDS: IBUPROFEN 400 MG TABLET (FP) PO PRN (04:16)
[2019-10-02] MEDS: METHOCARBAMOL 500 MG TABLET PO PRN ×4 (04:16→23:07)
[2019-10-02] MEDS ORDERED: METHADONE HCL 5 MG TABLET (FOR DETOX USE ONLY) ONE (08:54)
[2019-10-02] MEDS ORDERED: METHADONE HCL 10 MG TABLET (FOR DETOX USE ONLY) ONE (08:54)
[2019-10-02] MEDS ORDERED: METHADONE (DETOX) 20 MG, METHADONE (DETOX) 5 MG PO ONE (10:00)
[2019-10-02] MEDS: PRENATAL VITAMINS W/ FOLIC ACID TABLET (FP) PO SCH (10:25)
[2019-10-02] MEDS: NICOTINE 21 MG/24 HOURS TOPICAL PATCH TD SCH (10:25)
[2019-10-02] MEDS: ACETAMINOPHEN 325 MG TABLET (FP) PO PRN ×2 (10:30→20:19)
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
[2019-10-02] MEDS: hydrOXYzine PAMOATE 25 MG CAPSULE (FP) PO PRN ×2 (11:59→20:19)
--- NOTE | 2019-10-02 12:50 | PN ---
S CIWA - CIWA Score Nausea/Vomitin Muscle Tremors: 3 Anxiety: 3 Agitation: 3 Paroxysmal Sweats: No Perspiration Orientation: 0-Oriented Tacttile Disturbances: 1-Very Mild Itch/Numbness Auditory Disturbances: 0-None Visual Disturbances: 0-None Headache: 2-Mild CIWA-Ar Total Score: 14 [facility]HS COWS - Scale Resting Pulse: 0= PA 80 or Below Sweatin= No chills or Flushing Restless Observation: 0= Sits Still Pupil Size: 1= Pupils >than Normal Bone or Joint Aches: 2= Severe Diffuse Aches Runny Nose/ Eye Tearin= Runny Nose/Eyes GI Upset > 30mins: 2= Nausea/Diarrhea Tremor Observation of Outstretched Hands: 2= Slight Tremor Visible Yawning Observation: 1= 1-2x During Session Anxiety or Irritability: 2=Irritable/Anxious Goose Flesh Skin: 0=Smooth Skin COWS Score: 12 S Progress Note (SOAP) Subjective: alert,irritable,anxious,interrupted sleep,tremor,pain in the body and back, nausea Objective: 10/02/19 12:55 Vital Signs Temperature 97.3 F L 10/02/19 08:48 Pulse Rate 67 10/02/19 08:48 Respiratory Rate 16 10/02/19 08:48 Blood Pressure 150/83 10/02/19 08:48 O2 Sat by Pulse Oximetry (%) 95 10/02/19 05:37 10/02/19 12:55 Laboratory Last Values WBC 6.2 K/mm3 (4.0-10.0) 10/01/19 12:15 RBC 4.42 M/mm3 (4.00-5.60) 10/01/19 12:15 Hgb 13.7 GM/dL (11.7-16.9) 10/01/19 12:15 Hct 39.6 % (35.4-49) 10/01/19 12:15 MCV 89.7 fl (80-96) 10/01/19 12:15 MCH 31.1 pg (25.7-33.7) 10/01/19 12:15 MCHC 34.7 g/dl (32.0-35.9) 10/01/19 12:15 RDW 12.5 % (11.9-15.9) 10/01/19 12:15 Plt Count 250 K/MM3 (134-434) 10/01/19 12:15 MPV 10.1 fl (7.5-11.1) 10/01/19 12:15 Sodium 136 mmol/L (136-145) 10/01/19 12:15 Potassium 4.4 mmol/L (3.5-5.1) 10/01/19 12:15 Chloride 101 mmol/L (98-107) 10/01/19 12:15 Carbon Dioxide 29 mmol/L (21-32) 10/01/19 12:15 Anion Gap 5 MMOL/L (8-16) L 10/01/19 12:15 BUN 13.9 mg/dL (7-18) 10/01/19 12:15 Creatinine 0.9 mg/dL (0.55-1.3) 10/01/19 12:15 Est GFR (CKD-EPI)AfAm 124.26 10/01/19 12:15 Est GFR (CKD-EPI)NonAf 107.21 10/01/19 12:15 Random Glucose 104 mg/dL (74-106) 10/01/19 12:15 Calcium 9.1 mg/dL (8.5-10.1) 10/01/19 12:15 Total Bilirubin 0.8 mg/dL (0.2-1) 10/01/19 12:15 AST 17 U/L (15-37) 10/01/19 12:15 ALT 31 U/L (13-61) 10/01/19 12:15 Alkaline Phosphatase 97 U/L (45-117) 10/01/19 12:15 Total Protein 7.8 g/dl (6.4-8.2) 10/01/19 12:15 Albumin 4.1 g/dl (3.4-5.0) 10/01/19 12:15 Syphilis Serology Non-reactive (NONREACTIVE) 10/01/19 12:15 Assessment: 10/02/19 12:57 withdrawal symptom Plan: continue detox regimen change fro methadone and librium to methadone and valium
[2019-10-02] MEDS: diazePAM 5 MG TABLET PO SCH ×2 (14:44→21:14)
[2019-10-02] MEDS: diazePAM 5 MG TABLET PO PRN ×2 (15:48→23:07)
[2019-10-02] MEDS: THIAMINE HCL 100 MG TABLET (FP) PO SCH (21:14)
[2019-10-02] MEDS: MELATONIN 5 MG TABLETS PO SCH (23:00)
[2019-10-02] MEDS: SUVOREXANT 10 MG TABLET PO PRN (23:05)
[2019-10-03] MEDS ORDERED: chlordiazePOXIDE HCL 25 MG CAPSULE PO SCH (05:00)
[2019-10-03] MEDS: diazePAM 5 MG TABLET PO SCH ×3 (05:37→22:13)
[2019-10-03] MEDS: METHOCARBAMOL 500 MG TABLET PO PRN ×3 (05:37→20:07)
[2019-10-03] MEDS: IBUPROFEN 400 MG TABLET (FP) PO PRN ×2 (05:37→18:12)
[2019-10-03] MEDS ORDERED: METHADONE HCL 10 MG TABLET (FOR DETOX USE ONLY) PO ONE (10:00)
[2019-10-03] MEDS: PRENATAL VITAMINS W/ FOLIC ACID TABLET (FP) PO SCH (10:36)
[2019-10-03] MEDS: NICOTINE 21 MG/24 HOURS TOPICAL PATCH TD SCH (10:36)
[2019-10-03] MEDS: diazePAM 5 MG TABLET PO PRN ×3 (11:25→20:07)
[2019-10-03] MEDS: ONDANSETRON *ODT* 4 MG TABLET SL PRN ×2 (12:46→13:35)
[2019-10-03] MEDS: cloNIDine HCL 0.1 MG TABLET PO PRN ×2 (12:48→18:12)
[2019-10-03] MEDS: ACETAMINOPHEN 325 MG TABLET (FP) PO PRN (13:36)
--- NOTE | 2019-10-03 13:50 | PN ---
[facility] CIWA - CIWA Score Nausea/Vomitin-No Nausea/No Vomiting Muscle Tremors: 2 Anxiety: 2 Agitation: 1-Slight > Activity Paroxysmal Sweats: 2 Orientation: 0-Oriented Tacttile Disturbances: 0-None Auditory Disturbances: 1-Very Mild Visual Disturbances: 2-Mild Sensitivity Headache: 0-None Present CIWA-Ar Total Score: 10 S COWS - Scale Resting Pulse: 0= MD 80 or Below Sweatin= Chills/Flushing Restless Observation: 1= Difficult to Sit Still Pupil Size: 0= Normal to Room Light Bone or Joint Aches: 2= Severe Diffuse Aches Runny Nose/ Eye Tearin= None GI Upset > 30mins: 0= None Tremor Observation of Outstretched Hands: 2= Slight Tremor Visible Yawning Observation: 0= None Anxiety or Irritability: 2=Irritable/Anxious Goose Flesh Skin: 0=Smooth Skin COWS Score: 8 [facility] Progress Note (SOAP) Subjective: Complaints of tremors, anxiety, sweats, light sensitivity and body aches. Objective: 10/03/19 13:50 Vital Signs 10/03/19 10/03/19 09:15 12:43 Temperature 97.5 F L 97.8 F Pulse Rate 81 68 Respiratory 18 16 Rate Blood Pressure 131/68 126/76 O2 Sat by Pulse 100 Oximetry (%) Laboratory Last Values WBC 6.2 K/mm3 (4.0-10.0) 10/01/19 12:15 RBC 4.42 M/mm3 (4.00-5.60) 10/01/19 12:15 Hgb 13.7 GM/dL (11.7-16.9) 10/01/19 12:15 Hct 39.6 % (35.4-49) 10/01/19 12:15 MCV 89.7 fl (80-96) 10/01/19 12:15 MCH 31.1 pg (25.7-33.7) 10/01/19 12:15 MCHC 34.7 g/dl (32.0-35.9) 10/01/19 12:15 RDW 12.5 % (11.9-15.9) 10/01/19 12:15 Plt Count 250 K/MM3 (134-434) 10/01/19 12:15 MPV 10.1 fl (7.5-11.1) 10/01/19 12:15 Sodium 136 mmol/L (136-145) 10/01/19 12:15 Potassium 4.4 mmol/L (3.5-5.1) 10/01/19 12:15 Chloride 101 mmol/L (98-107) 10/01/19 12:15 Carbon Dioxide 29 mmol/L (21-32) 10/01/19 12:15 Anion Gap 5 MMOL/L (8-16) L 10/01/19 12:15 BUN 13.9 mg/dL (7-18) 10/01/19 12:15 Creatinine 0.9 mg/dL (0.55-1.3) 10/01/19 12:15 Est GFR (CKD-EPI)AfAm 124.26 10/01/19 12:15 Est GFR (CKD-EPI)NonAf 107.21 10/01/19 12:15 Random Glucose 104 mg/dL (74-106) 10/01/19 12:15 Calcium 9.1 mg/dL (8.5-10.1) 10/01/19 12:15 Total Bilirubin 0.8 mg/dL (0.2-1) 10/01/19 12:15 AST 17 U/L (15-37) 10/01/19 12:15 ALT 31 U/L (13-61) 10/01/19 12:15 Alkaline Phosphatase 97 U/L (45-117) 10/01/19 12:15 Total Protein 7.8 g/dl (6.4-8.2) 10/01/19 12:15 Albumin 4.1 g/dl (3.4-5.0) 10/01/19 12:15 Syphilis Serology Non-reactive (NONREACTIVE) 10/01/19 12:15 COVID-19 (KALLIE) Not detected (Not Detected) 10/01/19 14:00 Labs noted. Assessment: 10/03/19 13:50 Alert and oriented x 3, in no acute respiratory distress. Full ROM, ambulating in the unit without assistance. Withdrawal symptoms. Plan: Continue detox protocol.
[2019-10-03] MEDS: hydrOXYzine PAMOATE 25 MG CAPSULE (FP) PO PRN ×2 (18:12→22:12)
[2019-10-03] MEDS: SUVOREXANT 10 MG TABLET PO PRN (22:12)
[2019-10-03] MEDS: THIAMINE HCL 100 MG TABLET (FP) PO SCH (22:13)
[2019-10-03] MEDS: MELATONIN 5 MG TABLETS PO SCH (22:13)
[2019-10-04] MEDS ORDERED: chlordiazePOXIDE HCL 10 MG CAPSULE PO PRN
[2019-10-04] MEDS ORDERED: chlordiazePOXIDE HCL 10 MG CAPSULE PO SCH (05:00)
[2019-10-04] MEDS ORDERED: diazePAM 5 MG TABLET PO SCH (06:00)
[2019-10-04] MEDS: METHOCARBAMOL 500 MG TABLET PO PRN (08:47)
[2019-10-04] MEDS: IBUPROFEN 400 MG TABLET (FP) PO PRN (08:47)
[2019-10-04] MEDS: diazePAM 5 MG TABLET PO PRN (08:47)
[2019-10-04] MEDS ORDERED: METHADONE HCL 10 MG TABLET (FOR DETOX USE ONLY) ONE (09:19)
[2019-10-04] MEDS ORDERED: METHADONE HCL 5 MG TABLET (FOR DETOX USE ONLY) ONE (09:19)
[2019-10-04] MEDS ORDERED: METHADONE (DETOX) 10 MG, METHADONE (DETOX) 5 MG PO ONE (10:00)
[2019-10-04] MEDS: NICOTINE 21 MG/24 HOURS TOPICAL PATCH TD SCH (10:27)
[2019-10-04] MEDS: PRENATAL VITAMINS W/ FOLIC ACID TABLET (FP) PO SCH (10:27)
[2019-10-04] MEDS: ACETAMINOPHEN 325 MG TABLET (FP) PO PRN (10:28)
[2019-10-04 10:58] VITALS: BP 111/64; PULSE 54; TEMP 98.4
--- NOTE | 2019-10-04 16:36 | DS ---
[facility] Detox Discharge Summary Admission Date: 10/01/19 - History Present History: Alcohol Dependence, Opioid Dependence Additional Comments: Pt decided to leave stating that he wants more methadone. Patient left AMA despite encouragement from staff to complete detox. Patient informed to call 911 ANGELLA if sick or withdrawal sxs and to see his PCP within 3 days. Patient verbalized understanding. Patient left in stable condition. Pertinent Past History: Nicotine dependence Heroin dependence Alcohol dependence - Physical Exam Results Vital Signs: Vital Signs Temperature 98.4 F 10/04/19 08:40 Pulse Rate 54 L 10/04/19 08:40 Respiratory Rate 16 10/04/19 08:40 Blood Pressure 111/64 10/04/19 08:40 O2 Sat by Pulse Oximetry (%) 100 10/04/19 08:40 Pertinent Admission Physical Exam Findings: Withdrawal sxs Laboratory Tests 10/01/19 10/01/19 10/01/19 12:15 12:15 12:15 WBC 6.2 RBC 4.42 Hgb 13.7 Hct 39.6 MCV 89.7 MCH 31.1 MCHC 34.7 RDW 12.5 Plt Count 250 MPV 10.1 Sodium 136 Potassium 4.4 Chloride 101 Carbon Dioxide 29 Anion Gap 5 L BUN 13.9 Creatinine 0.9 Est GFR (CKD-EPI)AfAm 124.26 Est GFR (CKD-EPI)NonAf 107.21 Random Glucose 104 Calcium 9.1 Total Bilirubin 0.8 AST 17 ALT 31 Alkaline Phosphatase 97 Total Protein 7.8 Albumin 4.1 Syphilis Serology Non-reactive COVID-19 (KALLIE) 10/01/19 14:00 WBC RBC Hgb Hct MCV MCH MCHC RDW Plt Count MPV Sodium Potassium Chloride Carbon Dioxide Anion Gap BUN Creatinine Est GFR (CKD-EPI)AfAm Est GFR (CKD-EPI)NonAf Random Glucose Calcium Total Bilirubin AST ALT Alkaline Phosphatase Total Protein Albumin Syphilis Serology COVID-19 (KALLIE) Not detected Labs reviewed - Medication Discharge Medications: Ambulatory Orders NK [No Known Home Medication] 10/01/19 - Diagnosis (1) Alcohol dependence with withdrawal, uncomplicated Status: Acute (2) Opioid dependence with withdrawal Status: Acute (3) Nicotine dependence Status: Chronic Qualifiers: Nicotine product type: cigarettes Substance use status: uncomplicated Qualified Code(s): F17.210 - Nicotine dependence, cigarettes, uncomplicated - AMA Did Patient Leave Against Medical Advice: Yes (Instructed to call 911 ANGELLA if sick/withdrawal sxs)
[2019-10-05] MEDS ORDERED: chlordiazePOXIDE HCL 10 MG CAPSULE PO SCH (05:00)
[2019-10-05] MEDS ORDERED: diazePAM 5 MG TABLET PO ONE (06:00)
[2019-10-05] MEDS ORDERED: METHADONE HCL 10 MG TABLET (FOR DETOX USE ONLY) PO ONE (10:00)
[2019-10-06] MEDS ORDERED: chlordiazePOXIDE HCL 10 MG CAPSULE PO ONE (05:00)
[2019-10-06] MEDS ORDERED: METHADONE HCL 5 MG TABLET (FOR DETOX USE ONLY) PO ONE (06:00)
== END 2019-10-04 11:24 | disposition left against medical advice (07) | DRG 770 ==
LOC: YASAS 10:39 → Y6N 12:17
PROVIDERS: ADMIT Allergy & Immunology; ATTEND Allergy & Immunology
PROC: HZ2ZZZZ Detoxification Services for Substance Abuse Treatment (ICD-10-PCS; principal; 2019-10-01)
DX: F10.230 Alcohol dependence with withdrawal, uncomplicated (principal); F11.23 Opioid dependence with withdrawal; F14.20 Cocaine dependence, uncomplicated; F17.210 Nicotine dependence, cigarettes, uncomplicated; F19.280 Other psychoactive substance dependence with psychoactive substance-induced anxiety disorder; F19.282 Other psychoactive substance dependence with psychoactive substance-induced sleep disorder; F32.9 Major depressive disorder, single episode, unspecified; Z62.810 Personal history of physical and sexual abuse in childhood; Z87.19 Personal history of other diseases of the digestive system; Z56.0 Unemployment, unspecified; Z59.0 Homelessness
CPT/HCPCS: 36415; 80053; 85027; 86780; 93005; 93010; J0735; Q0162; U0003

== ENCOUNTER 2021-05-24 11:46 | Inpatient (IN) | payer OTHER ==
[2021-05-24] MEDS ORDERED: MENTHOL/PHENOL 1 EACH UD MM PRN (12:55)
[2021-05-24] MEDS ORDERED: MAG HYDROX/AL HYDROX/SIMETH 30 ML UNIT-DOSE CUP PO PRN (12:55)
[2021-05-24] MEDS ORDERED: NICOTINE 10 MG CARTRIDGE (INHALER) IH PRN (12:55)
[2021-05-24] MEDS ORDERED: MAGNESIUM CITRATE 300 ML BOTTLE PO PRN (12:55)
[2021-05-24] MEDS ORDERED: BISMUTH SUBSALICYLATE 524 MG/30 ML PO PRN (12:55)
[2021-05-24] MEDS ORDERED: LOPERAMIDE HCL 2 MG CAPSULE PO PRN (12:55)
[2021-05-24] MEDS ORDERED: ONDANSETRON *ODT* 4 MG TABLET SL PRN (12:55)
[2021-05-24] MEDS ORDERED: cloNIDine HCL 0.1 MG TABLET PO PRN (12:55)
[2021-05-24] MEDS ORDERED: chlordiazePOXIDE HCL 25 MG CAPSULE PO PRN (12:55)
[2021-05-24] MEDS ORDERED: MAGNESIUM HYDROX 2400MG/30ML ORAL SUSPENSION 30 ML CUP PO PRN (12:55)
[2021-05-24] MEDS ORDERED: ACETAMINOPHEN 325 MG TABLET (FP) PO PRN (12:55)
[2021-05-24 13:42] VITALS: BMI 27.3
[2021-05-24] MEDS ORDERED: methaDONE HCL 10 MG TABLET (FOR DETOX USE ONLY) PO ONE ×2 (14:00→19:00)
[2021-05-24] MEDS: THIAMINE HCL 100 MG TABLET (FP) PO SCH (22:31)
[2021-05-24] MEDS: chlordiazePOXIDE HCL 25 MG CAPSULE PO SCH (22:32)
[2021-05-24] MEDS: MELATONIN 5 MG TABLETS PO SCH (23:25)
[2021-05-25] MEDS: hydrOXYzine PAMOATE 25 MG CAPSULE (FP) PO SCH ×7 (01:15→22:30)
[2021-05-25] MEDS: IBUPROFEN 400 MG TABLET (FP) PO PRN ×2 (03:41→19:38)
[2021-05-25] MEDS: chlordiazePOXIDE HCL 25 MG CAPSULE PO SCH ×5 (06:11→22:30)
[2021-05-25] MEDS ORDERED: methaDONE HCL 10 MG TABLET (FOR DETOX USE ONLY) ONE ×2 (08:55→19:32)
[2021-05-25] MEDS: PRENATAL VITAMINS W/ FOLIC ACID TABLET (FP) PO SCH (11:08)
[2021-05-25 12:52] LABS: ALBUMIN 3.8 g/dl (3.4-5.0); BLOOD UREA NITROGEN 14.9 mg/dL (7-18); CALCIUM 8.5 mg/dL (8.5-10.1)
[2021-05-25 12:54] LABS: HEMATOCRIT 40.1 % (35.4-49); HEMOGLOBIN 13.8 GM/dL (11.7-16.9); MCH 30.2 pg (25.7-33.7); MCHC 34.3 g/dl (32.0-35.9); MEAN CELL VOLUME 88.1 fl (80-96); MEAN PLT VOLUME 9.9 fl (7.5-11.1); PLATELET COUNT 208 10^3/uL (134-434); RBC 4.55 M/mm3 (4.00-5.60); RDW 12.7 % (11.9-15.9); WHITE BLOOD COUNT 4.2 K/mm3 (4.0-10.0)
[2021-05-25 12:57] LABS: BILIRUBIN,TOTAL 0.4 mg/dL (0.2-1); TOT PROT 6.6 g/dl (6.4-8.2)
[2021-05-25] MEDS: MELATONIN 5 MG TABLETS PO SCH (22:30)
[2021-05-25] MEDS: THIAMINE HCL 100 MG TABLET (FP) PO SCH (22:30)
[2021-05-26] MEDS: hydrOXYzine PAMOATE 25 MG CAPSULE (FP) PO SCH ×5 (06:44→22:27)
[2021-05-26] MEDS: chlordiazePOXIDE HCL 25 MG CAPSULE PO SCH ×4 (06:44→22:27)
[2021-05-26] MEDS ORDERED: methaDONE HCL 10 MG TABLET (FOR DETOX USE ONLY) PO ONE (10:00)
[2021-05-26] MEDS: PRENATAL VITAMINS W/ FOLIC ACID TABLET (FP) PO SCH (10:57)
[2021-05-26 13:07] LABS: SARS-CoV-2 NAA Not Detected (Not Detected)
[2021-05-26] MEDS: ACETAMINOPHEN 325 MG TABLET (FP) PO PRN (17:36)
[2021-05-26] MEDS: MELATONIN 5 MG TABLETS PO SCH (22:27)
[2021-05-26] MEDS: THIAMINE HCL 100 MG TABLET (FP) PO SCH (22:27)
[2021-05-27] MEDS ORDERED: chlordiazePOXIDE HCL 10 MG CAPSULE PO PRN
[2021-05-27] MEDS: chlordiazePOXIDE HCL 10 MG CAPSULE PO SCH ×4 (05:52→22:05)
[2021-05-27] MEDS: hydrOXYzine PAMOATE 25 MG CAPSULE (FP) PO SCH ×5 (05:52→22:06)
[2021-05-27] MEDS ORDERED: methaDONE HCL 10 MG TABLET (FOR DETOX USE ONLY) ONE (09:01)
[2021-05-27] MEDS: PRENATAL VITAMINS W/ FOLIC ACID TABLET (FP) PO SCH (11:07)
[2021-05-27] MEDS: METHOCARBAMOL 500 MG TABLET PO PRN ×2 (11:08→22:05)
[2021-05-27] MEDS: IBUPROFEN 400 MG TABLET (FP) PO PRN (22:05)
[2021-05-27] MEDS: THIAMINE HCL 100 MG TABLET (FP) PO SCH (22:05)
[2021-05-27] MEDS: MELATONIN 5 MG TABLETS PO SCH (22:06)
[2021-05-28] MEDS: ACETAMINOPHEN 325 MG TABLET (FP) PO PRN ×2 (00:16→17:33)
[2021-05-28] MEDS: hydrOXYzine PAMOATE 25 MG CAPSULE (FP) PO SCH ×5 (05:04→22:28)
[2021-05-28] MEDS: chlordiazePOXIDE HCL 10 MG CAPSULE PO SCH ×2 (05:04→17:30)
[2021-05-28] MEDS: METHOCARBAMOL 500 MG TABLET PO PRN ×3 (05:06→18:16)
[2021-05-28] MEDS ORDERED: methaDONE HCL 10 MG TABLET (FOR DETOX USE ONLY) PO ONE (10:00)
[2021-05-28] MEDS: PRENATAL VITAMINS W/ FOLIC ACID TABLET (FP) PO SCH (10:54)
[2021-05-28] MEDS: IBUPROFEN 400 MG TABLET (FP) PO PRN ×2 (12:16→18:16)
[2021-05-28] MEDS: THIAMINE HCL 100 MG TABLET (FP) PO SCH (22:28)
[2021-05-28] MEDS: MELATONIN 5 MG TABLETS PO SCH (22:29)
[2021-05-29] MEDS: METHOCARBAMOL 500 MG TABLET PO PRN (02:09)
[2021-05-29] MEDS ORDERED: chlordiazePOXIDE HCL 10 MG CAPSULE PO ONE (05:00)
[2021-05-29] MEDS: hydrOXYzine PAMOATE 25 MG CAPSULE (FP) PO SCH ×2 (05:38→10:40)
[2021-05-29 09:58] VITALS: BP 119/69; PULSE 85; TEMP 97.7
[2021-05-29] MEDS: PRENATAL VITAMINS W/ FOLIC ACID TABLET (FP) PO SCH (10:40)
[2021-05-29 14:07] LABS: SARS-CoV-2 NAA Not Detected (Not Detected)
== END 2021-05-29 10:32 | disposition home or self-care (01) | DRG 773 ==
LOC: YASAS 11:46 → Y6N 14:50
PROVIDERS: ADMIT Allergy & Immunology; ATTEND Allergy & Immunology
PROC: HZ2ZZZZ Detoxification Services for Substance Abuse Treatment (ICD-10-PCS; principal; 2021-05-24)
DX: F11.23 Opioid dependence with withdrawal (principal); F10.230 Alcohol dependence with withdrawal, uncomplicated; F14.20 Cocaine dependence, uncomplicated; F17.210 Nicotine dependence, cigarettes, uncomplicated; K21.9 Gastro-esophageal reflux disease without esophagitis; Z59.02 Unsheltered homelessness
CPT/HCPCS: 36415; 80053; 85027; 86780; 93005; 93010; C9803; Q0162; U0003; U0005

== ENCOUNTER 2021-06-01 13:22 | Emergency (ER) | payer OTHER ==
[2021-06-01 14:14] VITALS: BMI 26.6
[2021-06-01] MEDS ORDERED: ACETAMINOPHEN 500 MG TABLET (FP) PO ONE (14:33)
[2021-06-01] MEDS ORDERED: KETOROLAC TROMETHAMINE 30 MG/1 ML VIAL IM ONE (14:34)
[2021-06-01] MEDS ORDERED: ACETAMINOPHEN 325 MG TABLET (FP) ONE (14:43)
[2021-06-01] MEDS ORDERED: KETOROLAC TROMETHAMINE 30 MG/1 ML VIAL ONE (14:43)
[2021-06-01 18:12] VITALS: BP 123/76; PULSE 80; TEMP 98.8
== END 2021-06-01 18:00 | disposition home or self-care (01) ==
LOC: JER 13:22
PROC: 3E023GC Introduction of Other Therapeutic Substance into Muscle, Percutaneous Approach (ICD-10-PCS; principal; 2021-06-01)
DX: S42.002A Fracture of unspecified part of left clavicle, initial encounter for closed fracture (principal); S22.42XA Multiple fractures of ribs, left side, initial encounter for closed fracture; F11.23 Opioid dependence with withdrawal; F10.239 Alcohol dependence with withdrawal, unspecified; W19.XXXA Unspecified fall, initial encounter
CPT/HCPCS: 99284-25

== ENCOUNTER 2021-06-02 06:02 | Inpatient (IN) | payer OTHER ==
[2021-06-02] MEDS ORDERED: MAGNESIUM HYDROX 2400MG/30ML ORAL SUSPENSION 30 ML CUP PO PRN (10:58)
[2021-06-02] MEDS ORDERED: LOPERAMIDE HCL 2 MG CAPSULE PO PRN (10:58)
[2021-06-02] MEDS ORDERED: MAGNESIUM CITRATE 300 ML BOTTLE PO PRN (10:58)
[2021-06-02] MEDS ORDERED: guaiFENesin 200 MG/10 ML 10 ML UNIT-DOSE CUPS PO PRN (10:58)
[2021-06-02] MEDS ORDERED: MAG HYDROX/AL HYDROX/SIMETH 30 ML UNIT-DOSE CUP PO PRN (10:58)
[2021-06-02] MEDS ORDERED: P-EPHED 60MG/TRIPROLIDI 2.5MG TABLET PO PRN (10:58)
[2021-06-02] MEDS ORDERED: PRENATAL VITAMINS W/ FOLIC ACID TABLET (FP) PO SCH (11:00)
[2021-06-02 12:20] VITALS: BMI 26.6
[2021-06-02] MEDS: IBUPROFEN 400 MG TABLET (FP) PO PRN ×2 (13:37→21:49)
[2021-06-02] MEDS: NICOTINE 7 MG/24 HOURS TOPICAL PATCH TD SCH (13:39)
[2021-06-02] MEDS: PRENATAL VITAMINS W/ FOLIC ACID TABLET (FP) PO SCH (13:39)
[2021-06-02] MEDS ORDERED: hydrOXYzine PAMOATE 25 MG CAPSULE (FP) PO SCH (14:00)
[2021-06-02] MEDS: ACETAMINOPHEN 325 MG TABLET (FP) PO PRN ×2 (17:18→23:53)
[2021-06-02] MEDS: hydrOXYzine PAMOATE 25 MG CAPSULE (FP) PO PRN ×2 (17:18→21:50)
[2021-06-02] MEDS: THIAMINE HCL 100 MG TABLET (FP) PO SCH (21:47)
[2021-06-02] MEDS: MELATONIN 5 MG TABLETS PO SCH (21:48)
[2021-06-03] MEDS: ACETAMINOPHEN 325 MG TABLET (FP) PO PRN ×2 (04:29→15:49)
[2021-06-03] MEDS: PRENATAL VITAMINS W/ FOLIC ACID TABLET (FP) PO SCH (10:30)
[2021-06-03] MEDS: NICOTINE 7 MG/24 HOURS TOPICAL PATCH TD SCH (10:30)
[2021-06-03] MEDS: IBUPROFEN 400 MG TABLET (FP) PO PRN (11:17)
[2021-06-03] MEDS: hydrOXYzine PAMOATE 25 MG CAPSULE (FP) PO PRN ×2 (11:17→22:01)
[2021-06-03] MEDS ORDERED: BISMUTH SUBSALICYLATE 262 MG/15 ML BTL PO ONE (19:34)
[2021-06-03 20:48] LABS: PH,URINE 7.5 (5.0-8.0); URINE APPEARANCE CLEAR; URINE BILIRUBIN NEGATIVE (NEGATIVE); URINE COLOR YELLOW; URINE GLUCOSE (UA) NEGATIVE (NEGATIVE); URINE KETONE TRACE (NEGATIVE); URINE LEUK ESTERASE NEGATIVE (NEGATIVE); URINE NITRITE NEGATIVE (NEGATIVE); URINE PROTEIN NEGATIVE (NEGATIVE)
[2021-06-03] MEDS: MELATONIN 5 MG TABLETS PO SCH (22:33)
[2021-06-03] MEDS: THIAMINE HCL 100 MG TABLET (FP) PO SCH (22:39)
[2021-06-04] MEDS ORDERED: ONDANSETRON *ODT* 4 MG TABLET SL ONE (09:13)
[2021-06-04] MEDS: NICOTINE 7 MG/24 HOURS TOPICAL PATCH TD SCH (11:30)
[2021-06-04] MEDS: PRENATAL VITAMINS W/ FOLIC ACID TABLET (FP) PO SCH (11:30)
[2021-06-04] MEDS: NICOTINE 10 MG CARTRIDGE (INHALER) IH PRN (17:20)
[2021-06-04] MEDS ORDERED: LIDOCAINE 5% TOPICAL PATCH TP SCH (18:45)
[2021-06-04] MEDS ORDERED: BUPRENORPHINE/NALOXONE 4 MG/1 MG FILM PACKET SL ONE (18:46)
[2021-06-04] MEDS: METHOCARBAMOL 500 MG TABLET PO PRN ×2 (18:49→21:35)
[2021-06-04] MEDS: MELATONIN 5 MG TABLETS PO SCH (21:34)
[2021-06-04] MEDS: THIAMINE HCL 100 MG TABLET (FP) PO SCH (21:34)
[2021-06-04] MEDS: hydrOXYzine PAMOATE 25 MG CAPSULE (FP) PO PRN (21:36)
[2021-06-04] MEDS ORDERED: LIDOCAINE PATCH REMOVAL MC SCH (22:00)
[2021-06-05] MEDS: METHOCARBAMOL 500 MG TABLET PO PRN ×4 (04:17→21:35)
[2021-06-05] MEDS: PRENATAL VITAMINS W/ FOLIC ACID TABLET (FP) PO SCH (09:23)
[2021-06-05] MEDS: NICOTINE 7 MG/24 HOURS TOPICAL PATCH TD SCH (09:24)
[2021-06-05] MEDS ORDERED: LIDOCAINE 5% TOPICAL PATCH TP SCH (10:00)
[2021-06-05] MEDS ORDERED: BUPRENORPHINE/NALOXONE 8 MG/2 MG FILM PACKET SL SCH (10:00)
[2021-06-05] MEDS: hydrOXYzine PAMOATE 25 MG CAPSULE (FP) PO PRN ×2 (10:57→19:59)
[2021-06-05] MEDS: IBUPROFEN 400 MG TABLET (FP) PO PRN (13:24)
[2021-06-05] MEDS ORDERED: LIDOCAINE 5% TOPICAL PATCH TP ONE (13:30)
[2021-06-05] MEDS: ACETAMINOPHEN 325 MG TABLET (FP) PO PRN (19:58)
[2021-06-05] MEDS: THIAMINE HCL 100 MG TABLET (FP) PO SCH (21:34)
[2021-06-05] MEDS: MELATONIN 5 MG TABLETS PO SCH (21:34)
[2021-06-05] MEDS ORDERED: LIDOCAINE PATCH REMOVAL MC SCH (22:00)
[2021-06-05] MEDS ORDERED: LIDOCAINE PATCH REMOVAL MC ONE (22:00)
[2021-06-06 06:08] LABS: SARS-CoV-2 NAA Not Detected (Not Detected)
[2021-06-06] MEDS ORDERED: BUPRENORPHINE/NALOXONE 4 MG/1 MG FILM PACKET SL SCH ×2 (08:29→10:00)
[2021-06-06] MEDS: LIDOCAINE 5% TOPICAL PATCH TP SCH (09:24)
[2021-06-06] MEDS: IBUPROFEN 400 MG TABLET (FP) PO PRN ×2 (09:24→21:24)
[2021-06-06] MEDS: hydrOXYzine PAMOATE 25 MG CAPSULE (FP) PO PRN (09:25)
[2021-06-06] MEDS: METHOCARBAMOL 500 MG TABLET PO PRN ×3 (09:25→21:23)
[2021-06-06] MEDS: NICOTINE 7 MG/24 HOURS TOPICAL PATCH TD SCH (11:37)
[2021-06-06] MEDS: PRENATAL VITAMINS W/ FOLIC ACID TABLET (FP) PO SCH (11:37)
[2021-06-06] MEDS: THIAMINE HCL 100 MG TABLET (FP) PO SCH (21:22)
[2021-06-06] MEDS: MELATONIN 5 MG TABLETS PO SCH (21:22)
[2021-06-06] MEDS: DOCUSATE SODIUM 100 MG CAPSULE (FP) PO SCH (21:23)
[2021-06-06] MEDS: LIDOCAINE PATCH REMOVAL MC SCH (21:25)
[2021-06-07] MEDS ORDERED: IBUPROFEN 600 MG TABLET (FP) PO PRN (10:15)
[2021-06-07] MEDS: hydrOXYzine PAMOATE 25 MG CAPSULE (FP) PO PRN ×3 (10:33→21:22)
[2021-06-07] MEDS: PRENATAL VITAMINS W/ FOLIC ACID TABLET (FP) PO SCH (10:33)
[2021-06-07] MEDS: NICOTINE 7 MG/24 HOURS TOPICAL PATCH TD SCH (10:34)
[2021-06-07] MEDS: LIDOCAINE 5% TOPICAL PATCH TP SCH (10:34)
[2021-06-07] MEDS: METHOCARBAMOL 500 MG TABLET PO PRN ×3 (10:37→21:21)
[2021-06-07] MEDS: IBUPROFEN 600 MG TABLET (FP) PO PRN ×2 (10:38→18:52)
[2021-06-07] MEDS ORDERED: BUPRENORPHINE/NALOXONE 4 MG/1 MG FILM PACKET SL ONE (10:45)
[2021-06-07] MEDS: MELATONIN 5 MG TABLETS PO SCH (21:20)
[2021-06-07] MEDS: THIAMINE HCL 100 MG TABLET (FP) PO SCH (21:20)
[2021-06-07] MEDS: DOCUSATE SODIUM 100 MG CAPSULE (FP) PO SCH (21:21)
[2021-06-07] MEDS: LIDOCAINE PATCH REMOVAL MC SCH (21:22)
[2021-06-08] MEDS: ACETAMINOPHEN 325 MG TABLET (FP) PO PRN (02:13)
[2021-06-08] MEDS ORDERED: BUPRENORPHINE/NALOXONE 4 MG/1 MG FILM PACKET SL SCH (06:00)
[2021-06-08] MEDS ORDERED: BUPRENORPHINE/NALOXONE 12 MG-3 MG SL FILM PACKET SL SCH (06:00)
[2021-06-08] MEDS: METHOCARBAMOL 500 MG TABLET PO PRN ×3 (06:43→21:18)
[2021-06-08] MEDS: hydrOXYzine PAMOATE 25 MG CAPSULE (FP) PO PRN ×3 (06:43→21:18)
[2021-06-08] MEDS: IBUPROFEN 600 MG TABLET (FP) PO PRN ×2 (06:43→21:18)
[2021-06-08] MEDS: PRENATAL VITAMINS W/ FOLIC ACID TABLET (FP) PO SCH (10:53)
[2021-06-08] MEDS: NICOTINE 7 MG/24 HOURS TOPICAL PATCH TD SCH (10:53)
[2021-06-08] MEDS: LIDOCAINE 5% TOPICAL PATCH TP SCH (10:56)
[2021-06-08] MEDS ORDERED: BUPRENORPHINE/NALOXONE 4 MG/1 MG FILM PACKET SL ONE (13:30)
[2021-06-08] MEDS: THIAMINE HCL 100 MG TABLET (FP) PO SCH (21:18)
[2021-06-08] MEDS: MELATONIN 5 MG TABLETS PO SCH (21:18)
[2021-06-08] MEDS: DOCUSATE SODIUM 100 MG CAPSULE (FP) PO SCH (21:18)
[2021-06-08] MEDS: LIDOCAINE PATCH REMOVAL MC SCH (21:19)
[2021-06-09] MEDS: IBUPROFEN 600 MG TABLET (FP) PO PRN ×2 (06:20→19:21)
[2021-06-09] MEDS: hydrOXYzine PAMOATE 25 MG CAPSULE (FP) PO PRN ×3 (06:20→21:37)
[2021-06-09] MEDS: METHOCARBAMOL 500 MG TABLET PO PRN ×2 (06:20→21:36)
[2021-06-09] MEDS: BUPRENORPHINE/NALOXONE 4 MG/1 MG FILM PACKET SL SCH (06:20)
[2021-06-09] MEDS: LIDOCAINE 5% TOPICAL PATCH TP SCH (11:02)
[2021-06-09] MEDS: PRENATAL VITAMINS W/ FOLIC ACID TABLET (FP) PO SCH (11:02)
[2021-06-09] MEDS: NICOTINE 7 MG/24 HOURS TOPICAL PATCH TD SCH (11:02)
[2021-06-09] MEDS: DOCUSATE SODIUM 100 MG CAPSULE (FP) PO SCH (21:36)
[2021-06-09] MEDS: MELATONIN 5 MG TABLETS PO SCH (21:36)
[2021-06-09] MEDS: THIAMINE HCL 100 MG TABLET (FP) PO SCH (21:37)
[2021-06-09] MEDS: ACETAMINOPHEN 325 MG TABLET (FP) PO PRN (21:38)
[2021-06-09] MEDS: LIDOCAINE PATCH REMOVAL MC SCH (23:14)
[2021-06-10] MEDS: BUPRENORPHINE/NALOXONE 4 MG/1 MG FILM PACKET SL SCH ×2 (06:38→17:57)
[2021-06-10] MEDS: METHOCARBAMOL 500 MG TABLET PO PRN (06:39)
[2021-06-10] MEDS: PRENATAL VITAMINS W/ FOLIC ACID TABLET (FP) PO SCH (10:01)
[2021-06-10] MEDS: hydrOXYzine PAMOATE 25 MG CAPSULE (FP) PO PRN ×2 (10:01→21:35)
[2021-06-10] MEDS: LIDOCAINE 5% TOPICAL PATCH TP SCH (10:01)
[2021-06-10] MEDS: NICOTINE 7 MG/24 HOURS TOPICAL PATCH TD SCH (10:01)
[2021-06-10] MEDS: IBUPROFEN 600 MG TABLET (FP) PO PRN (10:02)
[2021-06-10] MEDS: THIAMINE HCL 100 MG TABLET (FP) PO SCH (21:35)
[2021-06-10] MEDS: DOCUSATE SODIUM 100 MG CAPSULE (FP) PO SCH (21:35)
[2021-06-10] MEDS: MELATONIN 5 MG TABLETS PO SCH (21:35)
[2021-06-10] MEDS: ACETAMINOPHEN 325 MG TABLET (FP) PO PRN (21:36)
[2021-06-10] MEDS: NICOTINE 10 MG CARTRIDGE (INHALER) IH PRN (22:32)
[2021-06-10] MEDS: LIDOCAINE PATCH REMOVAL MC SCH (22:58)
[2021-06-11] MEDS: IBUPROFEN 600 MG TABLET (FP) PO PRN (04:03)
[2021-06-11] MEDS: PRENATAL VITAMINS W/ FOLIC ACID TABLET (FP) PO SCH (09:58)
[2021-06-11] MEDS: BUPRENORPHINE/NALOXONE 4 MG/1 MG FILM PACKET SL SCH ×2 (09:59→17:55)
[2021-06-11] MEDS: METHOCARBAMOL 500 MG TABLET PO PRN ×2 (10:00→17:56)
[2021-06-11] MEDS: hydrOXYzine PAMOATE 25 MG CAPSULE (FP) PO PRN (10:02)
[2021-06-11] MEDS: NICOTINE 7 MG/24 HOURS TOPICAL PATCH TD SCH (10:18)
[2021-06-11] MEDS: NICOTINE 10 MG CARTRIDGE (INHALER) IH PRN ×2 (10:19→18:05)
[2021-06-11] MEDS: LIDOCAINE 5% TOPICAL PATCH TP SCH (11:08)
[2021-06-11] MEDS: ACETAMINOPHEN 325 MG TABLET (FP) PO PRN (21:30)
[2021-06-11] MEDS: DOCUSATE SODIUM 100 MG CAPSULE (FP) PO SCH (21:31)
[2021-06-11] MEDS: LIDOCAINE PATCH REMOVAL MC SCH (21:32)
[2021-06-11] MEDS: THIAMINE HCL 100 MG TABLET (FP) PO SCH (21:32)
[2021-06-11] MEDS: MELATONIN 5 MG TABLETS PO SCH (21:32)
[2021-06-12] MEDS: IBUPROFEN 600 MG TABLET (FP) PO PRN ×2 (04:29→21:36)
[2021-06-12] MEDS: BUPRENORPHINE/NALOXONE 4 MG/1 MG FILM PACKET SL SCH (09:57)
[2021-06-12] MEDS: PRENATAL VITAMINS W/ FOLIC ACID TABLET (FP) PO SCH (09:58)
[2021-06-12] MEDS: LIDOCAINE 5% TOPICAL PATCH TP SCH ×2 (09:59→15:18)
[2021-06-12] MEDS: NICOTINE 7 MG/24 HOURS TOPICAL PATCH TD SCH (09:59)
[2021-06-12] MEDS: NICOTINE 10 MG CARTRIDGE (INHALER) IH PRN (10:36)
[2021-06-12] MEDS: hydrOXYzine PAMOATE 25 MG CAPSULE (FP) PO PRN ×2 (15:33→21:36)
[2021-06-12] MEDS: METHOCARBAMOL 500 MG TABLET PO PRN ×2 (15:33→21:37)
[2021-06-12] MEDS ORDERED: BUPRENORPHINE/NALOXONE 8 MG/2 MG FILM PACKET SL SCH ×2 (18:00)
[2021-06-12] MEDS ORDERED: BUPRENORPHINE/NALOXONE 4 MG/1 MG FILM PACKET SL SCH (18:30)
[2021-06-12] MEDS: THIAMINE HCL 100 MG TABLET (FP) PO SCH (21:34)
[2021-06-12] MEDS: LIDOCAINE PATCH REMOVAL MC SCH (21:34)
[2021-06-12] MEDS: MELATONIN 5 MG TABLETS PO SCH (21:34)
[2021-06-12] MEDS: DOCUSATE SODIUM 100 MG CAPSULE (FP) PO SCH (21:34)
[2021-06-13] MEDS: PRENATAL VITAMINS W/ FOLIC ACID TABLET (FP) PO SCH (10:27)
[2021-06-13] MEDS: NICOTINE 10 MG CARTRIDGE (INHALER) IH PRN (10:27)
[2021-06-13] MEDS: NICOTINE 7 MG/24 HOURS TOPICAL PATCH TD SCH (10:27)
[2021-06-13] MEDS: LIDOCAINE 5% TOPICAL PATCH TP SCH (10:28)
[2021-06-13] MEDS: hydrOXYzine PAMOATE 25 MG CAPSULE (FP) PO PRN ×2 (10:28→21:19)
[2021-06-13] MEDS: METHOCARBAMOL 500 MG TABLET PO PRN ×2 (10:28→21:19)
[2021-06-13] MEDS: BUPRENORPHINE/NALOXONE 4 MG/1 MG FILM PACKET SL SCH (10:30)
[2021-06-13] MEDS ORDERED: BUPRENORPHINE/NALOXONE 4 MG/1 MG FILM PACKET SL ONE (18:00)
[2021-06-13] MEDS: MELATONIN 5 MG TABLETS PO SCH (21:19)
[2021-06-13] MEDS: THIAMINE HCL 100 MG TABLET (FP) PO SCH (21:19)
[2021-06-13] MEDS: DOCUSATE SODIUM 100 MG CAPSULE (FP) PO SCH (21:19)
[2021-06-13] MEDS: IBUPROFEN 600 MG TABLET (FP) PO PRN (21:20)
[2021-06-13] MEDS: LIDOCAINE PATCH REMOVAL MC SCH (21:21)
[2021-06-14] MEDS: IBUPROFEN 600 MG TABLET (FP) PO PRN (06:15)
[2021-06-14] MEDS: hydrOXYzine PAMOATE 25 MG CAPSULE (FP) PO PRN ×2 (06:16→21:22)
[2021-06-14] MEDS: NICOTINE 7 MG/24 HOURS TOPICAL PATCH TD SCH (10:16)
[2021-06-14] MEDS: PRENATAL VITAMINS W/ FOLIC ACID TABLET (FP) PO SCH (10:16)
[2021-06-14] MEDS: BUPRENORPHINE/NALOXONE 4 MG/1 MG FILM PACKET SL SCH ×2 (10:17→18:40)
[2021-06-14] MEDS: LIDOCAINE 5% TOPICAL PATCH TP SCH (10:17)
[2021-06-14] MEDS ORDERED: BUPRENORPHINE/NALOXONE 4 MG/1 MG FILM PACKET SL SCH (18:00)
[2021-06-14] MEDS: METHOCARBAMOL 500 MG TABLET PO PRN ×2 (18:39→21:22)
[2021-06-14] MEDS: DOCUSATE SODIUM 100 MG CAPSULE (FP) PO SCH (21:22)
[2021-06-14] MEDS: MELATONIN 5 MG TABLETS PO SCH (21:22)
[2021-06-14] MEDS: THIAMINE HCL 100 MG TABLET (FP) PO SCH (21:22)
[2021-06-14] MEDS: LIDOCAINE PATCH REMOVAL MC SCH (21:23)
[2021-06-15] MEDS: IBUPROFEN 600 MG TABLET (FP) PO PRN (05:07)
[2021-06-15] MEDS: METHOCARBAMOL 500 MG TABLET PO PRN ×2 (06:31→18:31)
[2021-06-15] MEDS: hydrOXYzine PAMOATE 25 MG CAPSULE (FP) PO PRN (06:31)
[2021-06-15] MEDS: NICOTINE 10 MG CARTRIDGE (INHALER) IH PRN (10:26)
[2021-06-15] MEDS: NICOTINE 7 MG/24 HOURS TOPICAL PATCH TD SCH (10:26)
[2021-06-15] MEDS: PRENATAL VITAMINS W/ FOLIC ACID TABLET (FP) PO SCH (10:26)
[2021-06-15] MEDS: LIDOCAINE 5% TOPICAL PATCH TP SCH (10:26)
[2021-06-15] MEDS: BUPRENORPHINE/NALOXONE 4 MG/1 MG FILM PACKET SL SCH ×2 (10:29→18:32)
[2021-06-15] MEDS: BENZOCAINE 28 GM HEMORRHOIDAL OINTMENT RC PRN (13:45)
[2021-06-15] MEDS: DOCUSATE SODIUM 100 MG CAPSULE (FP) PO SCH (22:11)
[2021-06-15] MEDS: MELATONIN 5 MG TABLETS PO SCH (22:11)
[2021-06-15] MEDS: THIAMINE HCL 100 MG TABLET (FP) PO SCH (22:11)
[2021-06-15] MEDS: LIDOCAINE PATCH REMOVAL MC SCH (22:12)
[2021-06-15] MEDS: ACETAMINOPHEN 325 MG TABLET (FP) PO PRN (22:12)
[2021-06-16] MEDS: LIDOCAINE 5% TOPICAL PATCH TP SCH (11:36)
[2021-06-16] MEDS: PRENATAL VITAMINS W/ FOLIC ACID TABLET (FP) PO SCH (11:36)
[2021-06-16] MEDS: NICOTINE 7 MG/24 HOURS TOPICAL PATCH TD SCH (11:36)
[2021-06-16] MEDS: BUPRENORPHINE/NALOXONE 4 MG/1 MG FILM PACKET SL SCH ×2 (11:37→18:12)
[2021-06-16] MEDS ORDERED: BUPRENORPHINE/NALOXONE 4 MG/1 MG FILM PACKET SL ONE (12:54)
[2021-06-16 16:08] LABS: SARS-CoV-2 NAA Not Detected (Not Detected)
[2021-06-16 21:02] LABS: URINE APPEARANCE CLEAR; URINE BILIRUBIN NEGATIVE (NEGATIVE); URINE COLOR YELLOW; URINE GLUCOSE (UA) NEGATIVE (NEGATIVE); URINE KETONE NEGATIVE (NEGATIVE); URINE LEUK ESTERASE NEGATIVE (NEGATIVE); URINE NITRITE NEGATIVE (NEGATIVE); URINE PROTEIN NEGATIVE (NEGATIVE); URINE UROBILINOGEN 0.2 mg/dL (0.2-1.0)
[2021-06-16] MEDS: MELATONIN 5 MG TABLETS PO SCH (21:27)
[2021-06-16] MEDS: LIDOCAINE PATCH REMOVAL MC SCH (21:27)
[2021-06-16] MEDS: THIAMINE HCL 100 MG TABLET (FP) PO SCH (21:27)
[2021-06-16] MEDS: DOCUSATE SODIUM 100 MG CAPSULE (FP) PO SCH (21:27)
[2021-06-16] MEDS: METHOCARBAMOL 500 MG TABLET PO PRN (21:28)
[2021-06-16] MEDS: hydrOXYzine PAMOATE 25 MG CAPSULE (FP) PO PRN (21:28)
[2021-06-16] MEDS: BENZOCAINE 28 GM HEMORRHOIDAL OINTMENT RC PRN (21:29)
[2021-06-17] MEDS: ACETAMINOPHEN 325 MG TABLET (FP) PO PRN (08:54)
[2021-06-17] MEDS: BUPRENORPHINE/NALOXONE 4 MG/1 MG FILM PACKET SL SCH ×2 (10:13→17:56)
[2021-06-17] MEDS: LIDOCAINE 5% TOPICAL PATCH TP SCH (10:13)
[2021-06-17] MEDS: NICOTINE 7 MG/24 HOURS TOPICAL PATCH TD SCH (10:14)
[2021-06-17] MEDS: PRENATAL VITAMINS W/ FOLIC ACID TABLET (FP) PO SCH (10:14)
[2021-06-17] MEDS: NICOTINE 10 MG CARTRIDGE (INHALER) IH PRN (10:16)
[2021-06-17] MEDS: LIDOCAINE PATCH REMOVAL MC SCH (21:23)
[2021-06-17] MEDS: METHOCARBAMOL 500 MG TABLET PO PRN (21:24)
[2021-06-17] MEDS: MELATONIN 5 MG TABLETS PO SCH (21:24)
[2021-06-17] MEDS: THIAMINE HCL 100 MG TABLET (FP) PO SCH (21:24)
[2021-06-17] MEDS: hydrOXYzine PAMOATE 25 MG CAPSULE (FP) PO PRN (21:25)
[2021-06-17] MEDS: DOCUSATE SODIUM 100 MG CAPSULE (FP) PO SCH (21:25)
[2021-06-18] MEDS: BUPRENORPHINE/NALOXONE 4 MG/1 MG FILM PACKET SL SCH ×2 (09:37→17:17)
[2021-06-18] MEDS: LIDOCAINE 5% TOPICAL PATCH TP SCH (09:39)
[2021-06-18] MEDS: NICOTINE 7 MG/24 HOURS TOPICAL PATCH TD SCH (09:39)
[2021-06-18] MEDS: PRENATAL VITAMINS W/ FOLIC ACID TABLET (FP) PO SCH (09:39)
[2021-06-18] MEDS: NICOTINE 10 MG CARTRIDGE (INHALER) IH PRN (14:45)
[2021-06-18] MEDS: hydrOXYzine PAMOATE 25 MG CAPSULE (FP) PO PRN (21:12)
[2021-06-18] MEDS: DOCUSATE SODIUM 100 MG CAPSULE (FP) PO SCH (21:12)
[2021-06-18] MEDS: THIAMINE HCL 100 MG TABLET (FP) PO SCH (21:12)
[2021-06-18] MEDS: MELATONIN 5 MG TABLETS PO SCH (21:12)
[2021-06-18] MEDS: LIDOCAINE PATCH REMOVAL MC SCH (21:13)
[2021-06-18] MEDS: METHOCARBAMOL 500 MG TABLET PO PRN (21:13)
[2021-06-19] MEDS: PRENATAL VITAMINS W/ FOLIC ACID TABLET (FP) PO SCH (09:52)
[2021-06-19] MEDS: NICOTINE 7 MG/24 HOURS TOPICAL PATCH TD SCH (09:52)
[2021-06-19] MEDS: LIDOCAINE 5% TOPICAL PATCH TP SCH (09:52)
[2021-06-19] MEDS: BUPRENORPHINE/NALOXONE 4 MG/1 MG FILM PACKET SL SCH ×2 (10:03→17:19)
[2021-06-19] MEDS: NICOTINE 10 MG CARTRIDGE (INHALER) IH PRN (11:03)
[2021-06-19] MEDS: METHOCARBAMOL 500 MG TABLET PO PRN ×2 (15:55→21:26)
[2021-06-19] MEDS: DOCUSATE SODIUM 100 MG CAPSULE (FP) PO SCH (21:25)
[2021-06-19] MEDS: THIAMINE HCL 100 MG TABLET (FP) PO SCH (21:25)
[2021-06-19] MEDS: MELATONIN 5 MG TABLETS PO SCH (21:25)
[2021-06-19] MEDS: LIDOCAINE PATCH REMOVAL MC SCH (21:26)
[2021-06-19] MEDS: hydrOXYzine PAMOATE 25 MG CAPSULE (FP) PO PRN (21:26)
[2021-06-20] MEDS: BUPRENORPHINE/NALOXONE 4 MG/1 MG FILM PACKET SL SCH ×2 (09:36→17:58)
[2021-06-20] MEDS: PRENATAL VITAMINS W/ FOLIC ACID TABLET (FP) PO SCH (09:36)
[2021-06-20] MEDS: LIDOCAINE 5% TOPICAL PATCH TP SCH (09:38)
[2021-06-20] MEDS: NICOTINE 7 MG/24 HOURS TOPICAL PATCH TD SCH (09:38)
[2021-06-20] MEDS: NICOTINE 10 MG CARTRIDGE (INHALER) IH PRN (10:14)
[2021-06-20] MEDS: METHOCARBAMOL 500 MG TABLET PO PRN ×2 (12:35→21:14)
[2021-06-20] MEDS: hydrOXYzine PAMOATE 25 MG CAPSULE (FP) PO PRN (21:14)
[2021-06-20] MEDS: MELATONIN 5 MG TABLETS PO SCH (21:14)
[2021-06-20] MEDS: DOCUSATE SODIUM 100 MG CAPSULE (FP) PO SCH (21:14)
[2021-06-20] MEDS: THIAMINE HCL 100 MG TABLET (FP) PO SCH (21:14)
[2021-06-20] MEDS: LIDOCAINE PATCH REMOVAL MC SCH (21:15)
[2021-06-21] MEDS: BUPRENORPHINE/NALOXONE 4 MG/1 MG FILM PACKET SL SCH ×2 (10:21→17:38)
[2021-06-21] MEDS: NICOTINE 7 MG/24 HOURS TOPICAL PATCH TD SCH (10:21)
[2021-06-21] MEDS: LIDOCAINE 5% TOPICAL PATCH TP SCH (10:21)
[2021-06-21] MEDS: PRENATAL VITAMINS W/ FOLIC ACID TABLET (FP) PO SCH (10:21)
[2021-06-21] MEDS: NICOTINE 10 MG CARTRIDGE (INHALER) IH PRN ×2 (10:24→18:18)
[2021-06-21] MEDS: METHOCARBAMOL 500 MG TABLET PO PRN ×2 (15:20→21:14)
[2021-06-21] MEDS: DOCUSATE SODIUM 100 MG CAPSULE (FP) PO SCH (21:14)
[2021-06-21] MEDS: MELATONIN 5 MG TABLETS PO SCH (21:14)
[2021-06-21] MEDS: THIAMINE HCL 100 MG TABLET (FP) PO SCH (21:14)
[2021-06-21] MEDS: LIDOCAINE PATCH REMOVAL MC SCH (21:15)
[2021-06-22] MEDS ORDERED: BUPRENORPHINE/NALOXONE 4 MG/1 MG FILM PACKET SL SCH (09:06)
[2021-06-22] MEDS: NICOTINE 10 MG CARTRIDGE (INHALER) IH PRN ×3 (09:13→22:39)
[2021-06-22] MEDS: hydrOXYzine PAMOATE 25 MG CAPSULE (FP) PO PRN (10:16)
[2021-06-22] MEDS: METHOCARBAMOL 500 MG TABLET PO PRN ×2 (10:16→21:11)
[2021-06-22] MEDS: PRENATAL VITAMINS W/ FOLIC ACID TABLET (FP) PO SCH (10:16)
[2021-06-22] MEDS: NICOTINE 7 MG/24 HOURS TOPICAL PATCH TD SCH (10:17)
[2021-06-22] MEDS: BUPRENORPHINE/NALOXONE 4 MG/1 MG FILM PACKET SL SCH ×2 (10:19→17:27)
[2021-06-22] MEDS: LIDOCAINE 5% TOPICAL PATCH TP SCH (10:19)
[2021-06-22] MEDS ORDERED: DOCUSATE SODIUM 100 MG CAPSULE (FP) PO ONE (11:14)
[2021-06-22] MEDS: MELATONIN 5 MG TABLETS PO SCH (21:11)
[2021-06-22] MEDS: LIDOCAINE PATCH REMOVAL MC SCH (21:11)
[2021-06-22] MEDS: THIAMINE HCL 100 MG TABLET (FP) PO SCH (21:11)
[2021-06-23] MEDS: NICOTINE 7 MG/24 HOURS TOPICAL PATCH TD SCH (10:37)
[2021-06-23] MEDS: PRENATAL VITAMINS W/ FOLIC ACID TABLET (FP) PO SCH (10:37)
[2021-06-23] MEDS: LIDOCAINE 5% TOPICAL PATCH TP SCH (10:37)
[2021-06-23] MEDS: DOCUSATE SODIUM 100 MG CAPSULE (FP) PO SCH (10:37)
[2021-06-23] MEDS: BUPRENORPHINE/NALOXONE 4 MG/1 MG FILM PACKET SL SCH ×2 (10:38→17:16)
[2021-06-23] MEDS: NICOTINE 10 MG CARTRIDGE (INHALER) IH PRN ×2 (11:31→18:39)
[2021-06-23] MEDS: METHOCARBAMOL 500 MG TABLET PO PRN ×2 (14:13→21:22)
[2021-06-23] MEDS: hydrOXYzine PAMOATE 25 MG CAPSULE (FP) PO PRN (14:13)
[2021-06-23] MEDS: THIAMINE HCL 100 MG TABLET (FP) PO SCH (21:22)
[2021-06-23] MEDS: LIDOCAINE PATCH REMOVAL MC SCH (21:22)
[2021-06-23] MEDS: MELATONIN 5 MG TABLETS PO SCH (21:22)
[2021-06-24] MEDS: METHOCARBAMOL 500 MG TABLET PO PRN ×2 (06:43→21:31)
[2021-06-24] MEDS: DOCUSATE SODIUM 100 MG CAPSULE (FP) PO SCH (10:17)
[2021-06-24] MEDS: PRENATAL VITAMINS W/ FOLIC ACID TABLET (FP) PO SCH (10:17)
[2021-06-24] MEDS: BUPRENORPHINE/NALOXONE 4 MG/1 MG FILM PACKET SL SCH ×2 (10:18→17:12)
[2021-06-24] MEDS: LIDOCAINE 5% TOPICAL PATCH TP SCH (10:19)
[2021-06-24] MEDS: NICOTINE 7 MG/24 HOURS TOPICAL PATCH TD SCH (10:19)
[2021-06-24] MEDS: NICOTINE 10 MG CARTRIDGE (INHALER) IH PRN ×2 (10:42→23:06)
[2021-06-24] MEDS: THIAMINE HCL 100 MG TABLET (FP) PO SCH (21:30)
[2021-06-24] MEDS: MELATONIN 5 MG TABLETS PO SCH (21:30)
[2021-06-24] MEDS: hydrOXYzine PAMOATE 25 MG CAPSULE (FP) PO PRN (21:31)
[2021-06-24] MEDS: LIDOCAINE PATCH REMOVAL MC SCH (21:31)
[2021-06-25 07:00] VITALS: TEMP 98.4
[2021-06-25] MEDS: METHOCARBAMOL 500 MG TABLET PO PRN ×2 (07:01→21:34)
[2021-06-25] MEDS: BUPRENORPHINE/NALOXONE 4 MG/1 MG FILM PACKET SL SCH ×2 (10:33→17:59)
[2021-06-25] MEDS: DOCUSATE SODIUM 100 MG CAPSULE (FP) PO SCH (10:33)
[2021-06-25] MEDS: PRENATAL VITAMINS W/ FOLIC ACID TABLET (FP) PO SCH (10:33)
[2021-06-25] MEDS: LIDOCAINE 5% TOPICAL PATCH TP SCH (10:36)
[2021-06-25] MEDS: NICOTINE 7 MG/24 HOURS TOPICAL PATCH TD SCH (10:36)
[2021-06-25] MEDS: NICOTINE 10 MG CARTRIDGE (INHALER) IH PRN ×2 (10:36→18:04)
[2021-06-25] MEDS: IBUPROFEN 600 MG TABLET (FP) PO PRN ×3 (11:30→22:32)
[2021-06-25] MEDS: THIAMINE HCL 100 MG TABLET (FP) PO SCH (21:33)
[2021-06-25] MEDS: MELATONIN 5 MG TABLETS PO SCH (21:33)
[2021-06-25] MEDS: LIDOCAINE PATCH REMOVAL MC SCH (21:33)
[2021-06-25] MEDS: hydrOXYzine PAMOATE 25 MG CAPSULE (FP) PO PRN (21:34)
[2021-06-26] MEDS: NICOTINE 7 MG/24 HOURS TOPICAL PATCH TD SCH (10:24)
[2021-06-26] MEDS: LIDOCAINE 5% TOPICAL PATCH TP SCH (10:25)
[2021-06-26] MEDS: PRENATAL VITAMINS W/ FOLIC ACID TABLET (FP) PO SCH (10:25)
[2021-06-26] MEDS: BUPRENORPHINE/NALOXONE 4 MG/1 MG FILM PACKET SL SCH ×2 (10:25→17:44)
[2021-06-26] MEDS: DOCUSATE SODIUM 100 MG CAPSULE (FP) PO SCH (10:25)
[2021-06-26] MEDS: hydrOXYzine PAMOATE 25 MG CAPSULE (FP) PO PRN ×2 (15:24→21:17)
[2021-06-26] MEDS: METHOCARBAMOL 500 MG TABLET PO PRN ×2 (16:31→21:16)
[2021-06-26] MEDS: NICOTINE 10 MG CARTRIDGE (INHALER) IH PRN (17:45)
[2021-06-26] MEDS: THIAMINE HCL 100 MG TABLET (FP) PO SCH (21:16)
[2021-06-26] MEDS: MELATONIN 5 MG TABLETS PO SCH (21:16)
[2021-06-26] MEDS: LIDOCAINE PATCH REMOVAL MC SCH (21:17)
[2021-06-26] MEDS: IBUPROFEN 600 MG TABLET (FP) PO PRN (21:17)
[2021-06-27] MEDS: LIDOCAINE 5% TOPICAL PATCH TP SCH (09:55)
[2021-06-27] MEDS: DOCUSATE SODIUM 100 MG CAPSULE (FP) PO SCH (09:55)
[2021-06-27] MEDS: BUPRENORPHINE/NALOXONE 4 MG/1 MG FILM PACKET SL SCH ×2 (09:56→17:30)
[2021-06-27] MEDS: NICOTINE 7 MG/24 HOURS TOPICAL PATCH TD SCH (09:56)
[2021-06-27] MEDS: PRENATAL VITAMINS W/ FOLIC ACID TABLET (FP) PO SCH (09:56)
[2021-06-27 11:19] VITALS: BP 91/55
[2021-06-27] MEDS: NICOTINE 10 MG CARTRIDGE (INHALER) IH PRN ×2 (13:42→22:50)
[2021-06-27] MEDS: MELATONIN 5 MG TABLETS PO SCH (21:07)
[2021-06-27] MEDS: METHOCARBAMOL 500 MG TABLET PO PRN (21:07)
[2021-06-27] MEDS: THIAMINE HCL 100 MG TABLET (FP) PO SCH (21:07)
[2021-06-27] MEDS: LIDOCAINE PATCH REMOVAL MC SCH (21:08)
[2021-06-28] MEDS: METHOCARBAMOL 500 MG TABLET PO PRN ×2 (10:15→21:04)
[2021-06-28] MEDS: DOCUSATE SODIUM 100 MG CAPSULE (FP) PO SCH (10:15)
[2021-06-28] MEDS: PRENATAL VITAMINS W/ FOLIC ACID TABLET (FP) PO SCH (10:15)
[2021-06-28] MEDS: NICOTINE 7 MG/24 HOURS TOPICAL PATCH TD SCH (10:16)
[2021-06-28] MEDS: NICOTINE 10 MG CARTRIDGE (INHALER) IH PRN ×2 (10:16→21:04)
[2021-06-28] MEDS: BUPRENORPHINE/NALOXONE 4 MG/1 MG FILM PACKET SL SCH ×2 (10:16→17:48)
[2021-06-28] MEDS: LIDOCAINE 5% TOPICAL PATCH TP SCH (10:16)
[2021-06-28 10:34] VITALS: PULSE 80
[2021-06-28] MEDS: hydrOXYzine PAMOATE 25 MG CAPSULE (FP) PO PRN (21:04)
[2021-06-28] MEDS: MELATONIN 5 MG TABLETS PO SCH (21:04)
[2021-06-28] MEDS: THIAMINE HCL 100 MG TABLET (FP) PO SCH (21:04)
[2021-06-28] MEDS: LIDOCAINE PATCH REMOVAL MC SCH (21:05)
[2021-06-29] MEDS: BUPRENORPHINE/NALOXONE 4 MG/1 MG FILM PACKET SL SCH (09:30)
[2021-06-29] MEDS: NICOTINE 7 MG/24 HOURS TOPICAL PATCH TD SCH (09:32)
[2021-06-29] MEDS: PRENATAL VITAMINS W/ FOLIC ACID TABLET (FP) PO SCH (09:32)
[2021-06-29] MEDS: DOCUSATE SODIUM 100 MG CAPSULE (FP) PO SCH (09:33)
[2021-06-29] MEDS: LIDOCAINE 5% TOPICAL PATCH TP SCH (09:34)
== END 2021-06-29 09:45 | disposition home or self-care (01) | DRG 772 ==
LOC: YASAS 06:02 → Y3W 12:06
PROVIDERS: ADMIT Allergy & Immunology; ATTEND Allergy & Immunology
PROC: HZ42ZZZ Group Counseling for Substance Abuse Treatment, Cognitive-Behavioral (ICD-10-PCS; principal; 2021-06-02)
DX: F11.20 Opioid dependence, uncomplicated (principal); F10.20 Alcohol dependence, uncomplicated; F14.20 Cocaine dependence, uncomplicated; F17.210 Nicotine dependence, cigarettes, uncomplicated; K21.9 Gastro-esophageal reflux disease without esophagitis; K59.00 Constipation, unspecified; R30.0 Dysuria; R53.83 Other fatigue; S42.022D Displaced fracture of shaft of left clavicle, subsequent encounter for fracture with routine healing; S22.42XD Multiple fractures of ribs, left side, subsequent encounter for fracture with routine healing; W19.XXXD Unspecified fall, subsequent encounter; Z88.5 Allergy status to narcotic agent; Z59.02 Unsheltered homelessness
CPT/HCPCS: 71101-TC-LT-FY; 73000-TC-LT-FY; 81003; 87086; C9803-CS; Q0162; U0003; U0005

== ENCOUNTER 2021-06-06 10:40 | Emergency (ER) | payer OTHER ==
[2021-06-06 11:14] VITALS: BP 102/62; PULSE 86; TEMP 97.9; BMI 26.6
== END 2021-06-06 14:58 | disposition home or self-care (01) ==
LOC: JERFT 10:40
DX: S42.012A Anterior displaced fracture of sternal end of left clavicle, initial encounter for closed fracture (principal); W01.0XXA Fall on same level from slipping, tripping and stumbling without subsequent striking against object, initial encounter
CPT/HCPCS: 99281-25